=== PATIENT | female | born 1960 | race Caucasian/White ===

== ENCOUNTER 2017-01-26 13:15 | Emergency (ER) | payer OTHER ==
[2017-01-26 13:22] VITALS: BP 140/79; PULSE 105; TEMP 100; BMI 30.9
--- NOTE | 2017-01-26 15:26 | PDOC ---
History of Present Illness - General Chief Complaint: Pain Stated Complaint: RT ARM PAIN Time Seen by Provider: 01/26/17 15:15 History Source: Patient Exam Limitations: No Limitations - History of Present Illness Initial Comments: 01/26/17 15:27 In for evaluation of right arm and shoulder pain that started 2 days ago. 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 over the weekend did multiple managed care liaison, lifting pulling. is very active and has never had any issues with musculoskeletal problems. yesterday had onset of shoulder pain that has progressively become worse today where she is unable to abduct her arm past approximately 30. Denies numbness or tingling to hand, no fevers, no recent trauma or injuries. Has never had evaluation for shoulder pain and has taken no medication. Patient is suffering from a severe case of eczema and taking multiple creams and steroids and does not like to use medications for anything therefore has not tried any Tylenol or Motrin for pain relief. 01/26/17 15:54 Occurred: reports: last week Severity: reports: mild, moderate Pain Location: reports: upper extremity (right arm ) Method of Injury: Yes: unknown Modifying Factors: improves with: None, cold therapy Loss of Consciousness: no loss of consciousness Associated Symptoms (Fall): denies symptoms Past History - Travel Traveled outside of the country in the last 30 days: No Close contact w/someone who was outside of country & ill: No - Past Medical History Allergies/Adverse Reactions: Allergies Allergy/AdvReac Type Severity Reaction Status Date / Time ampicillin Allergy Verified 01/26/17 13:22 Penicillins Allergy Verified 01/26/17 13:22 Home Medications: Ambulatory Orders NK [No Known Home Medication] 01/26/17 HTN: Yes Other medical history: eczema - Suicide/Smoking/Psychosocial Hx Smoking History: Never smoked Hx Alcohol Use: No Drug/Substance Use Hx: No Substance Use Type: None Review of Systems - Review of Systems Able to Perform ROS?: Yes Is the patient limited Green[place]ic proficient: Yes Constitutional: Yes: Symptoms Reported, See HPI. No: Fever, Malaise HEENTM: No: Symptoms Reported Respiratory: No: Symptoms reported Musculoskeletal: Yes: Symptoms Reported, See HPI, Joint Pain, Joint Swelling, Muscle Pain All Other Systems: Reviewed and Negative *Physical Exam - Vital Signs Last Vital Signs Temp Pulse Resp BP Pulse Ox 100 F H 105 H 19 140/79 96 01/26/17 13:20 01/26/17 13:20 01/26/17 13:20 01/26/17 13:20 01/26/17 13:20 - Physical Exam General Appearance: Yes: Nourished, Appropriately Dressed, Apparent Distress HEENT: positive: MIHAELA, Normal ENT Inspection (older,), TMs Normal, Pharynx Normal Neck: positive: Supple. negative: Tender Respiratory/Chest: positive: Lungs Clear, Normal Breath Sounds Musculoskeletal: positive: Decreased Range of Motion. negative: Normal Inspection, Vertebral Tenderness Extremity: positive: Normal Capillary Refill. negative: Normal Range of Motion (limited range of motion to abduction approximately 30 forward flexion approximately 30. Able to flex and extend at wrist and elbow with no pain on supination and pronation at wrist joint. Strong grasp, neurovascular intact to hand. Has reproduced tenderness at the insertion of the biceps tendons, and shoulder capsule. Has no crepitus or step-offs, no reproduced tenderness along bones of clavicle or scapula. 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 We'll treat with NSAIDs and have follow-up with orthopedist *DC/Admit/Observation/Transfer Diagnosis at time of Disposition: Right shoulder tendonitis - Discharge Dispostion Disposition: HOME Condition at time of disposition: Stable Admit: No - Referrals Referrals: Jimy Nuñez MD [Primary Care Provider] - - Patient Instructions Printed Discharge Instructions: DI for Calcific Tendonitis of the Shoulder Additional Instructions: Rest, ice to area on and off for 15 minutes 4-6 times a day Avoid heavy lifting or exercise until pain and swelling is resolved or until further directed Keep area highly elevated to reduce swelling Use splints/Bbo wrap as directed Followup with orthopedist in one to 2 days if not improving, if significantly improved may wait one week for followup with orthopedist May use ibuprofen 2-200 mg tablets every 6 hours as needed for pain Dr. Angelo Mahajan has orthopedic clinic hours for Medicare/Medicaid Orthopedic referral patients Office is located on [address] at [facility] ; call for appointment Clinic is open Wednesday from 9 AM to 12 noon and afternoon from to 4pm - Post Discharge Activity Forms/Work/School Notes: Back to Work
[2017-01-26] MEDS ORDERED: KETOROLAC TROMETHAMINE 60 MG/2 ML VIAL ONE (15:52)
[2017-01-26] MEDS ORDERED: KETOROLAC TROMETHAMINE 60 MG/2 ML VIAL IM ONE (15:54)
== END 2017-01-26 17:10 | disposition home or self-care (01) ==
LOC: JERFT 13:15
PROC: 3E0233Z Introduction of Anti-inflammatory into Muscle, Percutaneous Approach (ICD-10-PCS; principal; 2017-01-26)
DX: M75.32 Calcific tendinitis of left shoulder (principal); I10 Essential (primary) hypertension; Z88.0 Allergy status to penicillin; Z88.1 Allergy status to other antibiotic agents
CPT/HCPCS: 99281-25

== ENCOUNTER 2017-09-24 18:17 | Inpatient (IN) | payer OTHER ==
--- NOTE | 2017-09-24 18:19 | PDOC ---
Rapid Medical Evaluation Time Seen by Provider: 09/24/17 18:18 Medical Evaluation: Allergies Allergy/AdvReac Type Severity Reaction Status Date / Time ampicillin Allergy Verified 01/26/17 13:22 Penicillins Allergy Verified 01/26/17 13:22 09/24/17 18:18 I have performed a brief in-person evaluation of this patient. The patient presents with a chief complaint of: Upper days w/ nausea x several days. H/o IDDM PMD is Dr Reynoso Pertinent physical exam findings: BP 162/102, HR 116 but well dione w/ minimal ttp to epigastrium I have ordered the following:ekg/labs The patient will proceed to the ED for further evaluation. 09/24/17 18:27 Discharge Disposition - Diagnosis Abdominal pain Qualifiers: Abdominal location: upper abdomen, unspecified Qualified Code(s): R10.10 - Upper abdominal pain, unspecified - Referrals - Patient Instructions - Post Discharge Activity
[2017-09-24 18:28] VITALS: BMI 28.3
[2017-09-24 18:56] LABS: BASO % 0.5 % (0-2.0); EOS % 0.5 % (0-4.5); HEMOGLOBIN 12.9 GM/dL (10.7-15.3); LYMPH % 13.2 % (8-40); MCH 27.1 pg (25.7-33.7); MCHC 33.1 g/dl (32.0-36.0); MEAN CELL VOLUME 81.8 fl (80-96); MONO % 8.7 % (3.8-10.2); NEUT % 77.1 % (42.8-82.8); PLATELET COUNT 244 K/MM3 (134-434); RBC 4.77 M/mm3 (3.60-5.2); RDW 12.9 % (11.6-15.6); WHITE BLOOD COUNT 10.3 K/mm3 (4.0-10.0)
--- NOTE | 2017-09-24 19:10 | PDOC ---
History of Present Illness - General Chief Complaint: Nausea/Vomiting Stated Complaint: PAIN Time Seen by Provider: 09/24/17 18:18 - History of Present Illness Initial Comments: 09/24/17 19:08 Ms. Nieves is a 57 yo female w/ pmh of DM who presents for evaluation of multiple complaints. She reports she has had several months of back pain and recent MRI that showed several bulging discs. She also reports a recent history of thrombophlebitis to her left arm after some routine blood draws and "not feeling right." Ms. Nieves decided to present today as she began to have epigastric pain radiating to her right side. The patient denies chest pain, shortness of breath, headache and dizziness. Denies fever, chills, nausea, vomit, diarrhea and constipation. Denies dysuria, frequency, urgency and hematuria. Allergies: Ampicillin, penicillins PMD is Dr Reynoso Past History - Past Medical History Allergies/Adverse Reactions: Allergies Allergy/AdvReac Type Severity Reaction Status Date / Time ampicillin Allergy Verified 09/24/17 18:24 Penicillins Allergy Verified 09/24/17 18:24 Home Medications: Ambulatory Orders Sitagliptin Phosphate [Januvia -] 100 mg PO DAILY@0700 09/24/17 COPD: No Diabetes: Yes HTN: Yes (white coat syndrome) - Immunization History Immunization Up to Date: Yes - Suicide/Smoking/Psychosocial Hx Smoking History: Never smoked Hx Alcohol Use: No Drug/Substance Use Hx: No Substance Use Type: None Review of Systems - Review of Systems Comments:: 09/24/17 19:09 GENERAL/CONSTITUTIONAL: No fever or chills. No weakness. HEAD, EYES, EARS, NOSE AND THROAT: No change in vision. No ear pain or discharge. No sore throat. CARDIOVASCULAR: No chest pain or shortness of breath RESPIRATORY: No cough, wheezing, or hemoptysis. GASTROINTESTINAL: +RUQ pain radiating to side. No nausea, vomiting, diarrhea or constipation. GENITOURINARY: No dysuria, frequency, or change in urination. MUSCULOSKELETAL: No joint or muscle swelling or pain. No neck or back pain. SKIN: No rash NEUROLOGIC: No headache, vertigo, loss of consciousness, or change in strength/ sensation. ENDOCRINE: No increased thirst. No abnormal weight change HEMATOLOGIC/LYMPHATIC: No anemia, easy bleeding, or history of blood clots. ALLERGIC/IMMUNOLOGIC: No hives or skin allergy. *Physical Exam - Vital Signs Last Vital Signs Temp Pulse Resp BP Pulse Ox 99.0 F 116 H 20 162/102 98 09/24/17 18:25 09/24/17 18:25 09/24/17 18:25 09/24/17 18:25 09/24/17 18:25 - Physical Exam Comments: 09/24/17 19:10 GENERAL: Awake, alert, and fully oriented, in no acute distress HEAD: No signs of trauma, normocephalic, atraumatic EYES: PERRLA, EOMI, sclera anicteric, conjunctiva clear ENT: Auricles normal inspection, hearing grossly normal, nares patent, oropharynx clear without exudates. Moist mucosa NECK: Normal ROM, supple, no lymphadenopathy, JVD, or masses LUNGS: No distress, speaks full sentences, clear to auscultation bilaterally HEART: Regular rate and rhythm, normal S1 and S2, no murmurs, rubs or gallops, peripheral pulses normal and equal bilaterally. ABDOMEN: +RUQ TTP. Otherwise soft, nontender, normoactive bowel sounds. No guarding, no rebound. No masses EXTREMITIES: Normal inspection, Normal range of motion, no edema. No clubbing or cyanosis. NEUROLOGICAL: Cranial nerves II through XII grossly intact. Normal speech, normal gait, no focal sensorimotor deficits SKIN: Warm, Dry, normal turgor, no rashes or lesions noted. ED Treatment Course - LABORATORY CBC & Chemistry Diagram: 09/24/17 18:36 09/24/17 18:36 - ADDITIONAL ORDERS Additional order review: 09/24/17 18:36 RBC 4.77 MCV 81.8 MCHC 33.1 RDW 12.9 MPV 8.0 Neutrophils % 77.1 Lymphocytes % 13.2 Monocytes % 8.7 Eosinophils % 0.5 Basophils % 0.5 Medical Decision Making - Medical Decision Making 09/24/17 23:56 Ms. Nieves is a 57 yo female w/ pmh as described who presents for evaluation of multiple complaints. Broad workup started with labs as below. US ordered for evaluation of abdominal pain. Patient noted to have elevated troponin as below. Patient signed out to Dr. Mosley for further evaluation. Laboratory Results - last 24 hr 09/24/17 09/24/17 09/24/17 18:36 18:36 18:36 WBC 10.3 H RBC 4.77 Hgb 12.9 Hct 39.0 MCV 81.8 MCH 27.1 MCHC 33.1 RDW 12.9 Plt Count 244 MPV 8.0 Absolute Neuts (auto) 7.9 Neutrophils % 77.1 Lymphocytes % 13.2 Monocytes % 8.7 Eosinophils % 0.5 Basophils % 0.5 Nucleated RBC % 0 Sodium 130 L Potassium 3.7 Chloride 95 L Carbon Dioxide 25 Anion Gap 10 BUN 12 Creatinine 0.7 Creat Clearance w eGFR > 60 Random Glucose 171 H Calcium 9.6 Total Bilirubin 0.7 D AST 47 H ALT 43 Alkaline Phosphatase 147 H Creatine Kinase 72 Troponin I 0.36 H Total Protein 7.6 Albumin 3.8 Lipase 288 TSH 1.22 Urine Color Urine Appearance Urine pH Ur Specific [place] Urine Protein Urine Glucose (UA) Urine Ketones Urine Blood Urine Nitrite Urine Bilirubin Urine Urobilinogen Ur Leukocyte Esterase Urine WBC (Auto) Urine RBC (Auto) Ur Epithelial Cells Urine Mucus 09/24/17 19:29 WBC RBC Hgb Hct MCV MCH MCHC RDW Plt Count MPV Absolute Neuts (auto) Neutrophils % Lymphocytes % Monocytes % Eosinophils % Basophils % Nucleated RBC % Sodium Potassium Chloride Carbon Dioxide Anion Gap BUN Creatinine Creat Clearance w eGFR Random Glucose Calcium Total Bilirubin AST ALT Alkaline Phosphatase Creatine Kinase Troponin I Total Protein Albumin Lipase TSH Urine Color Yellow Urine Appearance Clear Urine pH 6.0 Ur Specific [place] 1.021 Urine Protein 1+ H Urine Glucose (UA) 1+ H D Urine Ketones 1+ H Urine Blood 2+ H Urine Nitrite Negative Urine Bilirubin Negative Urine Urobilinogen Negative Ur Leukocyte Esterase Negative Urine WBC (Auto) 4 Urine RBC (Auto) 25 Ur Epithelial Cells Rare Urine Mucus Rare *DC/Admit/Observation/Transfer Diagnosis at time of Disposition: Abdominal pain Qualifiers: Abdominal location: upper abdomen, unspecified Qualified Code(s): R10.10 - Upper abdominal pain, unspecified - Referrals Referrals: Shila Reynoso MD [Primary Care Provider] - - Patient Instructions - Post Discharge Activity
[2017-09-24 19:16] LABS: ALBUMIN 3.8 g/dl (3.4-5.0); ANION GAP 10 (8-16); BLOOD UREA NITROGEN 12 mg/dL (7-18); CALCIUM 9.6 mg/dL (8.5-10.1); CHLORIDE 95 mmol/L (98-107); CO2 25 mmol/L (21-32); CREATININE 0.7 mg/dL (0.55-1.02); GLUCOSE,RANDOM 171 mg/dL (74-106); POTASSIUM 3.7 mmol/L (3.5-5.1); SGOT/AST 47 U/L (15-37); SGPT/ALT 43 U/L (12-78); SODIUM 130 mmol/L (136-145)
[2017-09-24 19:20] LABS: ALK PHOS 147 U/L (45-117); BILIRUBIN,TOTAL 0.7 mg/dL (0.2-1.0); TOT PROT 7.6 g/dl (6.4-8.2)
[2017-09-24 19:42] LABS: URINE APPEARANCE CLEAR; URINE BILIRUBIN NEGATIVE (<2.0 mg/dL); URINE COLOR YELLOW; URINE GLUCOSE (UA) 1+ (NEGATIVE); URINE KETONE 1+ (NEGATIVE); URINE LEUK ESTERASE NEGATIVE (NEGATIVE); URINE NITRITE NEGATIVE (NEGATIVE); URINE UROBILINOGEN NEGATIVE mg/dL (0.2-1.0)
[2017-09-24 19:45] LABS: URINE PROTEIN 1+ (NEGATIVE)
[2017-09-24 19:48] LABS: LIPASE 288 U/L (73-393)
[2017-09-24 19:53] LABS: EPI CELLS RARE /HPF (FEW); URINE MUCUS RARE
[2017-09-24] MEDS ORDERED: LIDOCAINE VISCOUS 2% ORAL/TOP 20 ML UNIT-DOSE CUP MM ONE (19:57)
[2017-09-24] MEDS ORDERED: SODIUM CHLORIDE 1,000 ML IV STA (19:57)
[2017-09-24] MEDS ORDERED: MAG HYDROX/AL HYDROX/SIMETH 30 ML UNIT-DOSE CUP PO ONE (19:57)
[2017-09-24] MEDS ORDERED: FAMOTIDINE 20 MG/50 ML IVPB 20 MG/50 ML MG IVPB ONE ×2 (19:57→20:08)
[2017-09-24] MEDS ORDERED: ONDANSETRON 4 MG/2 ML VIAL IVPUSH ONE (19:57)
[2017-09-24] MEDS ORDERED: MAG HYDROX/AL HYDROX/SIMETH 30 ML UNIT-DOSE CUP ONE (20:08)
[2017-09-24] MEDS ORDERED: LIDOCAINE VISCOUS 2% ORAL/TOP 20 ML UNIT-DOSE CUP ONE (20:08)
[2017-09-24] MEDS ORDERED: ONDANSETRON 4 MG/2 ML VIAL ONE (20:08)
[2017-09-24] MEDS ORDERED: ASPIRIN 325 MG TABLET PO ONE (20:09)
[2017-09-24] MEDS ORDERED: ASPIRIN 325 MG TABLET ONE (20:27)
--- NOTE | 2017-09-24 22:59 | PDOC ---
Attending Attestation - Resident Resident Name: Donis Carmichael - ED Attending Attestation I have performed the following: I have examined & evaluated the patient, The case was reviewed & discussed with the resident, I agree w/resident's findings & plan, Exceptions are as noted - HPI HPI: 09/24/17 22:57 "The patient is a 57 year old female with past medical history of IDDM ( recently diagnosed), HTN and eczema presents to the emergency department complaining of total body pain. The patient reports constant pain that originated at the epigastric region radiating to the RUQ. Pt also complains of generalized malaise and pain in her shoulders and back. Pt denies chest pain, sob. Denies fever, chills, cough or headache. Denies nausea or vomiting. Denies diarrhea or constipation. Denies dysuria, hematuria, frequency or urgency to urinate. Denies vertigo or dizziness. Denies recent travel or illness. Denies sick contact. Allergies: ampicillin and Penicillins Social history: None reported Surgical history: None reported PCP: Shila Mitchell MD " - Physicial Exam PE: 09/24/17 22:59 "GENERAL: Awake, alert, and fully oriented, in no acute distress. HEAD: No signs of trauma EYES: PERRLA, EOMI, sclera anicteric, conjunctiva clear ENT: Auricles normal inspection, hearing grossly normal, nares patent, oropharynx clear without exudates. Moist mucosa NECK: Nontender, no stepoffs, Normal ROM, supple, no lymphadenopathy, JVD, or masses LUNGS: Breath sounds equal, clear to auscultation bilaterally. No wheezes, and no crackles HEART: Regular rate and rhythm, normal S1 and S2, no murmurs, rubs or gallops ABDOMEN: +RUQ and epigastric TTP, normoactive bowel sounds. No guarding, no rebound. No masses EXTREMITIES: Normal range of motion, no edema. No clubbing or cyanosis. No cords, erythema, or tenderness NEUROLOGICAL: Cranial nerves II through XII intact. 5/5 strength and sensation in all extremities, Normal speech, normal gait, normal cerebellar function SKIN: Warm, Dry, normal turgor, no rashes or lesions noted. " - Medical Decision Making 09/24/17 22:59 57 F with abdominal, back, shoulder pain. Found to be tender in RUQ on exam. Will r/o lucas with US. Will also check cardiac enzymes to r/o ACS, though she denies chest pain. - Labs, trop, lipase - RUQ sono - GI cocktail 09/24/17 23:00 Pt with mild trop leak 0.36 EKG shows sinus tachycardia with no ST changes or T wave inversions. 09/25/17 01:03 US negative for acute lucas. Pt continues to deny chest pain/SOB but endorses epigastric burning. Will admit for serial trops and ACS rule out. 09/25/17 02:[address] Montague who has accepted pt for inpt tele admission. Aspirin, metoprolol, lovenox administered Discharge Disposition - Diagnosis Elevated troponin Abdominal pain Qualifiers: Abdominal location: upper abdomen, unspecified Qualified Code(s): R10.10 - Upper abdominal pain, unspecified - Discharge Dispostion Decision to Admit order: Yes - Referrals Referrals: Shila Reynoso MD [Primary Care Provider] - - Patient Instructions - Post Discharge Activity
[2017-09-25] MEDS ORDERED: ACETAMINOPHEN 1000 MG/100 ML VIAL (NON FORMULARY) IVPB ONE (01:56)
[2017-09-25] MEDS ORDERED: ACETAMINOPHEN INJECTION 100 ML IVPB ONE (02:05)
[2017-09-25] MEDS ORDERED: ASPIRIN 325 MG TABLET PO ONE (02:07)
[2017-09-25] MEDS ORDERED: METOPROLOL TARTRATE 25 MG TABLET (FP) PO ONE (02:18)
[2017-09-25] MEDS ORDERED: ENOXAPARIN NA (PORCINE) 80 MG/0.8 ML DISP.SYRIN SQ ONE ×2 (02:19→02:31)
[2017-09-25] MEDS ORDERED: METOPROLOL TARTRATE 25 MG TABLET (FP) ONE (02:31)
[2017-09-25] MEDS ORDERED: ATORVASTATIN CA 80 MG TABLET (FP) PO ONE (02:51)
[2017-09-25 07:07] LABS: CHOLESTEROL 162 mg/dL (50-200); HDL CHOLESTEROL 42 mg/dL (40-60); TRIGLYCERIDES 113 mg/dL (35-160)
[2017-09-25 07:10] LABS: ALBUMIN 3.7 g/dl (3.4-5.0); ALK PHOS 155 U/L (45-117); ANION GAP 11 (8-16); BILIRUBIN,TOTAL 0.9 mg/dL (0.2-1.0); BLOOD UREA NITROGEN 7 mg/dL (7-18); CALCIUM 9.1 mg/dL (8.5-10.1); CHLORIDE 95 mmol/L (98-107); CO2 24 mmol/L (21-32); CREATININE 0.6 mg/dL (0.55-1.02); GLUCOSE,RANDOM 190 mg/dL (74-106); SGOT/AST 60 U/L (15-37); SGPT/ALT 40 U/L (12-78); SODIUM 130 mmol/L (136-145); TOT PROT 7.2 g/dl (6.4-8.2)
[2017-09-25] MEDS: INSULIN SLIDING SCALE (NOVOLOG) 1 VIAL SQ SCH (08:33)
[2017-09-25] MEDS ORDERED: sitaGLIPtin PHOSPHATE 50 MG TABLET ONE (08:34)
[2017-09-25] MEDS ORDERED: INSULIN (NOVOLOG) ASPART 100 UNITS/ML 10ML VIAL ONE (08:36)
[2017-09-25] MEDS: sitaGLIPtin PHOSPHATE 50 MG TABLET PO SCH (08:42)
--- NOTE | 2017-09-25 09:32 | HP ---
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 and decisons was made not to AC) recent Ct scan back shows spinal Hemangioma, patient completed prolonged Steroid (4months) for skin rash, yesterday present with sudden onset epigastric pain with nausea, radiates to back with, 8/10 in intensity no associated diarrhea, constipation, fever, chills or vomiting, patient denies any chest pain or SOB, in the Ed w/u shows elevated trop I but normal EKG and no chest pain, admitted for further evaluation, recived one dose of Lovenox , B Blockers and Statin, patient also had abdominal ultrasound that shows multiple hepatic opacities , mildly dilated CBD and pancreatic tail mass with perpancreatic node(new since 07/04), this am comfortable denies any abd or chest pain, CBC, CMP are at base line. Patient admit loosing 25 Lbs during past few months on [place] diet. History Source: Patient Limitations to Obtaining History: No Limitations - Past Medical History Gastrointestinal: Yes: Other (Fatty lever) Heme/Onc: Yes: Other (Thromboplebitis) Endocrine: Yes: Diabetes Mellitus - Smoking History Smoking history: Never smoked - Alcohol/Substance Use Hx Alcohol Use: No Home Medications - Allergies Allergies/Adverse Reactions: Allergies Allergy/AdvReac Type Severity Reaction Status Date / Time ampicillin Allergy Verified 09/24/17 18:24 Penicillins Allergy Verified 09/24/17 18:24 - Home Medications Home Medications: Ambulatory Orders Sitagliptin Phosphate [Januvia -] 100 mg PO DAILY@0700 09/24/17 Family Disease History - Family Disease History Family Disease History: Heart Disease: Brother Review of Systems - Review of Systems Constitutional: reports: Loss of Appetite, Unintentional Wgt. Loss (on [place] Diet 25 Lbs over 2 months). denies: Lethargy HENT: reports: No Symptoms Neck: reports: No Symptoms Cardiovascular: reports: No Symptoms Respiratory: reports: No Symptoms Gastrointestinal: reports: Abdominal Pain, Bloating Genitourinary: reports: No Symptoms Breasts: reports: No Symptoms Reported Musculoskeletal: reports: No Symptoms Neurological: reports: No Symptoms Endocrine: reports: No Symptoms Hematology/Lymphatic: reports: No Symptoms Physical Examination Vital Signs: Vital Signs Temperature 98.5 F 09/25/17 07:15 Pulse Rate 82 09/25/17 07:15 Respiratory Rate 17 09/25/17 07:15 Blood Pressure 117/77 09/25/17 07:15 O2 Sat by Pulse Oximetry (%) 98 09/25/17 07:15 Middle aged F feels improved less abs pain HEENT; Mm moist, no anemia, PERRLA EOMI NECK; No JVD No Bruit CHEST: CTA B/L CVS; s1S2 R no m/g/r ABD; No distention, mild epigastric tenderness tender Bs+ EXT: Cord like palpable vein Left upper extremity ,No edema feet, no calf tenderness, Pulses +. 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 Code(s): R74.8 - ABNORMAL LEVELS OF OTHER SERUM ENZYMES (2) Epigastric abdominal pain Assessment/Plan: Epigastric pain normal LFTS and lipase previous ultrasound shows Hepatic llesions and pancreativc tail mass with timothy-pancreatic LN enlargement, in view of recent unprovoked thrombosis and skin rash high suspicion for malignancy as per patient lat colonoscopy was few yrs ago and mammogram was normal, patient had an abdominal ultrasoiaund in 06/2015 shows fatty lever no hepatic masses, oncology consult, tumor markers and MRCP. Code(s): R10.13 - EPIGASTRIC PAIN (3) T2DM (type 2 diabetes mellitus) Assessment/Plan: Cont Januvia Hold [place] F/U HbA1C and Correction dose insulin. Code(s): E11.9 - TYPE 2 DIABETES MELLITUS WITHOUT COMPLICATIONS (4) Venous thrombosis Assessment/Plan: Left Upper extremity thrombosis after collecting blood sample , next day patient developed Left UE swelling, ultrasound donee at [place] shos median cubital V, , Cephalic V and , CT B/L subsegmental PE (Prelim report) on Lovenox Code(s): I82.90 - ACUTE EMBOLISM AND THROMBOSIS OF UNSPECIFIED VEIN (5) Pulmonary emboli Assessment/Plan: Subsegmental Rt LL and Left LL Segmental PE as per prelim Ct chest on Lovenox F/ U LE DVT and UE DVT scan scan Code(s): I26.99 - OTHER PULMONARY EMBOLISM WITHOUT ACUTE COR PULMONALE Qualifiers: Chronicity: acute (6) Pancreatic mass Assessment/Plan: Ct sacn and ultrasound shows 3.5X3.5 pancreatic mass encapsulating Spleenic , with paratrachael LN and multiple hepatic lesions highly suggestive of Pancraetic tumor will discuss with the patient. Code(s): K86.9 - DISEASE OF PANCREAS, UNSPECIFIED
[2017-09-25] MEDS ORDERED: ASPIRIN 81 MG CHEWABLE TABLETS PO SCH (10:00)
[2017-09-25] MEDS: metoPROLOL SUCCINATE 25 MG TAB.SR.24H (FP) PO SCH ×2 (10:40→22:25)
[2017-09-25] MEDS: RANITIDINE HCL 150 MG TABLET (FP) PO SCH ×3 (10:46→22:29)
--- NOTE | 2017-09-25 13:09 | CON.CARD ---
Cardiology Consult (text) - Consultation Consultation Note: CC: epigastric pain 57 yo with DM (about to start insulin), recent abd u/s showing NAFLD, recent dx of spinal hemangioma, recent dx of thrombophlebitis who p/w diffuse pain/ predominantly epigastric pain pain radiates to her right side. has been having fever for the past couple of weeks. Associated right arm swelling --> dx with [facility]. Also nausea. s/p mylanta, zofran, iv pepcid, 1L IVF and ASA 325 in ER. Denies cp, sob, orthopnea, pnd, le edema, palps, dizziness, bleeding, claudication or transient neurologic symptoms Denies chills, sweats, cough, congestion, rash, h/a, visual disturbances. PMD is Dr Reynoso pmhx/pshx: per hpi social hx: Never smoked fam hx: father and mother had MT's. ros: per hpi Ambulatory Orders Sitagliptin Phosphate [Januvia -] 100 mg PO DAILY@0700 09/24/17 Current Medications Aspirin (Asa -) 81 mg PO DAILY [facility] Last Admin: 09/25/17 10:40 Dose: 81 mg Insulin Aspart (Novolog Vial Sliding Scale -) 1 vial SQ TIDAC [facility]; Protocol Last Admin: 09/25/17 08:33 Dose: 4 unit Metoprolol Succinate (Toprol Xl -) 25 mg PO BID [facility] Last Admin: 09/25/17 10:40 Dose: 25 mg Ranitidine HCl (Zantac -) 150 mg PO BID [facility] Last Admin: 09/25/17 10:46 Dose: 150 mg Sitagliptin Phosphate (Januvia -) 100 mg PO DAILY@0700 [facility] Last Admin: 09/25/17 08:42 Dose: 100 mg Vital Signs - 24 hr 09/24/17 09/24/17 09/25/17 18:25 19:59 02:28 Temperature 99.0 F 98.2 F 99.6 F Pulse Rate 116 H Pulse Rate [ 100 H 104 H Apical] Respiratory 20 20 20 Rate Blood Pressure 162/102 Blood Pressure 158/74 169/98 [Right Arm] O2 Sat by Pulse 98 99 99 Oximetry (%) 09/25/17 07:15 Temperature 98.5 F Pulse Rate Pulse Rate [ 82 Apical] Respiratory 17 Rate Blood Pressure Blood Pressure 117/77 [Right Arm] O2 Sat by Pulse 98 Oximetry (%) Intake & Output 09/23/17 09/24/17 09/25/17 09/26/17 07:59 07:59 07:59 07:59 Weight 165 lb NAD, calm JVD flat, neck supple ctab, nl effort rrr nl s1, s2. no mrg + bs soft nt nd ext without e/c/c + dp/pt, no carotid bruits no jaundice, diaphoresis aaox3 small indurations at left UE antecubital fossa CBC, BMP 09/24/17 18:36 09/25/17 06:00 Laboratory Tests 09/24/17 09/24/17 09/25/17 18:36 18:36 01:20 Hemoglobin A1c % Total Bilirubin 0.7 D AST 47 H ALT 43 Alkaline Phosphatase 147 H Creatine Kinase 72 82 Troponin I 0.36 H 0.47 H Albumin 3.8 Triglycerides Cholesterol Total LDL Cholesterol HDL Cholesterol Lipase 288 TSH 1.22 09/25/17 09/25/17 09/25/17 06:00 06:00 06:00 Hemoglobin A1c % 8.2 H Total Bilirubin AST ALT Alkaline Phosphatase Creatine Kinase Troponin I 0.51 H Albumin Triglycerides 113 Cholesterol 162 Total LDL Cholesterol 105 H HDL Cholesterol 42 Lipase TSH 09/25/17 13:49 Hemoglobin A1c % Total Bilirubin AST ALT Alkaline Phosphatase Creatine Kinase 110 Troponin I 0.38 H Albumin Triglycerides Cholesterol Total LDL Cholesterol HDL Cholesterol Lipase TSH EKG: wnl tele: sr cxr; widening of the mediatstinum in the rigth paratracheal region, could represent ectatic great vasculature, adenopathy can't be excluded. clear lung bush. abd u/s 09/2017: numerous hypoechoic mass lesions (suspicious for metastatic disease). Indeterminate hypoechogenicity at junction of the pancreatic tail and body - pancreatitis vs. mass. enlarged peripancreatic l. node. mild cbd dilatation. aorta wnl. abd u/s 06/2017: mild hepatomegaly with fatty infiltration vs. hepatocellular disease. Per pmd, UE u/s from [place] was notable for: occlusive thrombus in the more distal brachial and ulnar veins. There is complete thrombosis of the basilic vein to the level of its confluence with the axillary vein and complete thrombosis of the median cubital vein. There is a segment of occlusive thrombus in the cephalic vein at the level of the antecubital fossa. no thrombus in the left internal jugular, subclavian and axillary vein or in the brachial vein to the level of the antecubital fossa. ASSESSMENT/PLAN 57 yo with DM (about to start insulin), recent abd u/s showing NAFLD, recent dx of spinal hemangioma, recent dx of thrombophlebitis who p/w diffuse pain/ predominantly epigastric pain epigastric pain/abnormal troponins - intermediate elevation, overall flat trend, nl ck - not c/w ACS. EKG wnl. - In light of recent thrombus in UE, would rule out PE as etiology of troponin elevation. - plan on stress test and echo on wednesday. would start primary prevention regimen with low dose asa, and low dose statin. - eval/mgm't of non-cardiac contribution to epigastric discomfort per pmd. ? hepatic lesions, new since june. UE thrombophlebitis - pmd discussed findings with both the consulting utility forester who was consulted at [facility] and a vascular surgeon --> both thought that treatment with anticoagulation was not needed. However, if pain were to persist, plan was to get a f/u LUE doppler to make sure no extension of the clot. And short course of treatment with NOAC (ie: Eliquis) x 6 weeks was to be reconsidered. -- > would repeat u/s here. hyponatremia - per pmd
--- NOTE | 2017-09-25 14:36 | EKG ---
Test Reason : Blood Pressure : / mmHG Vent. Rate : 090 BPM Atrial Rate : 090 BPM P-R Int : 138 ms QRS Dur : 078 ms QT Int : 388 ms P-R-T Axes : 046 023 042 degrees QTc Int : 474 ms NORMAL SINUS RHYTHM NORMAL ECG WHEN COMPARED WITH ECG OF 24-SEP-2017 18:34, NO SIGNIFICANT CHANGE WAS FOUND Confirmed by MD Santoyo Daniel ([id number]) on 09/25/2017 2:35:58 PM Referred By: Pat ULRICH Confirmed By:Anirudh Santoyo MD
--- NOTE | 2017-09-25 14:38 | EKG ---
Test Reason : Blood Pressure : / mmHG Vent. Rate : 118 BPM Atrial Rate : 118 BPM P-R Int : 134 ms QRS Dur : 076 ms QT Int : 334 ms P-R-T Axes : 040 015 051 degrees QTc Int : 468 ms SINUS TACHYCARDIA CANNOT RULE OUT ANTERIOR INFARCT , AGE UNDETERMINED ABNORMAL ECG NO PREVIOUS ECGS AVAILABLE Confirmed by MD Natanael, Anirudh ([id number]) on 09/25/2017 2:37:47 PM Referred By: Confirmed By:Anirudh Santoyo MD
[2017-09-25] MEDS: ENOXAPARIN NA (PORCINE) 80 MG/0.8 ML DISP.SYRIN SQ SCH (22:25)
[2017-09-26] MEDS: ACETAMINOPHEN 325 MG TABLET (FP) PO PRN (01:21)
[2017-09-26] MEDS: INSULIN SLIDING SCALE (NOVOLOG) 1 VIAL SQ SCH ×3 (06:43→18:37)
[2017-09-26] MEDS: sitaGLIPtin PHOSPHATE 50 MG TABLET PO SCH (06:44)
[2017-09-26 07:55] LABS: BASO % 0.4 % (0-2.0); EOS % 0.5 % (0-4.5); HEMATOCRIT 34.9 % (32.4-45.2); HEMOGLOBIN 11.8 GM/dL (10.7-15.3); LYMPH % 12.4 % (8-40); MCH 27.3 pg (25.7-33.7); MCHC 33.9 g/dl (32.0-36.0); MEAN CELL VOLUME 80.6 fl (80-96); MEAN PLT VOLUME 8.2 fl (7.5-11.1); MONO % 9.7 % (3.8-10.2); PLATELET COUNT 216 K/MM3 (134-434); RBC 4.33 M/mm3 (3.60-5.2); RDW 12.8 % (11.6-15.6); WHITE BLOOD COUNT 9.6 K/mm3 (4.0-10.0)
[2017-09-26 08:25] LABS: ANION GAP 9 (8-16); BLOOD UREA NITROGEN 9 mg/dL (7-18); CHLORIDE 97 mmol/L (98-107); CO2 25 mmol/L (21-32); CREATININE 0.6 mg/dL (0.55-1.02); GLUCOSE,RANDOM 159 mg/dL (74-106); MAGNESIUM 2.1 mg/dL (1.8-2.4); SODIUM 131 mmol/L (136-145)
[2017-09-26 08:40] LABS: LIPASE 231 U/L (73-393)
[2017-09-26 08:53] LABS: ALBUMIN 3.4 g/dl (3.4-5.0); BILIRUBIN,DIRECT 0.2 mg/dL (0.0-0.2); BILIRUBIN,TOTAL 0.7 mg/dL (0.2-1.0); TOT PROT 6.7 g/dl (6.4-8.2)
--- NOTE | 2017-09-26 09:57 | CONSULT ---
Consult Consult Specialty:: Hematology/Oncology Referred by:: Reason for Consultation:: New hepatic massess & pancreatic mass - History of Present Illness Chief Complaint: epigastric pain History of Present Illness: is a 57 y/o female with obesity, steroid induced T2DM, recent left UE superficial VT - not on AC who now presents to [facility] with complaints of epigastric pain radiating to the back, nausea with no other symptoms. Imaging studies obtained during this admission- USG abdomen shows a possible pancreatic tail & body mass as well as a LN adjacent to this mass (1.8 X1.3 cms). Multiple hepatic masses suspicious for metastatic disease. Recent CTA performed (still awaiting full read) shows the presence of small subsegmental PE and patient has been initiated on AC. Heme/Onc has been consulted to evaluate the patient for the presence of possible new malignancy. On speaking with patient, she has had a 25 pound weight-loss in the past 2 months, she was also following Atkins diet. She is allergic to penicillin and ampicillin - experiences hives, rashes in response to medication. She states that a full medical evaluation performed a week ago including an USG at PMD's office last week was wnl. 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) ...: No Endocrine: Yes: Diabetes Mellitus - Alcohol/Substance Use Hx Alcohol Use: No - Smoking History Smoking history: Never smoked Have you smoked in the past 12 months: No Home Medications - Allergies Allergies/Adverse Reactions: Allergies Allergy/AdvReac Type Severity Reaction Status Date / Time ampicillin Allergy Verified 09/24/17 18:24 Penicillins Allergy Verified 09/24/17 18:24 - Home Medications Home Medications: Ambulatory Orders Sitagliptin Phosphate [Januvia -] 100 mg PO DAILY@0700 09/24/17 Family Disease History - Family Disease History Family Disease History: Heart Disease: Brother Physical Exam Vital Signs: Vital Signs Temperature 99.8 F H 09/26/17 06:00 Pulse Rate 94 H 09/26/17 06:00 Respiratory Rate 20 09/26/17 06:00 Blood Pressure 151/82 09/26/17 06:00 O2 Sat by Pulse Oximetry (%) 98 09/25/17 21:00 Constitutional: Yes: Well Nourished Eyes: Yes: WNL HENT: Yes: WNL Neck: Yes: WNL Cardiovascular: Yes: WNL Respiratory: Yes: WNL Gastrointestinal: Yes: Normal Bowel Sounds Breast(s): Yes: WNL Musculoskeletal: Yes: WNL Extremities: Yes: WNL Edema: No Labs: CBC, BMP 09/26/17 07:00 09/26/17 07:00 Assessment/Plan 57 y/o female with weight loss, fever (Tmax 101.6), tachycardia with new hepatic , pancreatic masses discovered on USG abdomen, new subsegmental PE's and small pulmonary nodules noted on CTA 1.PE -recommend keeping pt on 1 mg/kg Lovenox divided BID -Hx of recent superficial thrombosis in left arm -possibly malignancy associated thrombosis -awaiting full CTA read -keep under cardiac, telemetry monitoring until vitals have normalized 2.Multiple hepatic masses, pancreatic mass - concern for occult pancreatic primary malignancy -please obtain better imaging study like CT abdomen with and without contrast -send tumor markers- CA 19-9, CA 125, CA 27.29 -Febrile, possible hepatic abscesses? send Bcx -will need CT guided biopsy of most accessible lesion pending further imaging studies Plan explained to patient at bedside and all her questions were answered. Will continue to follow with you.
--- NOTE | 2017-09-26 10:30 | PN ---
Progress Note, Physician Chief Complaint: Patient is concerned about imaging findings, No new complaints - Current Medication List Current Medications: Active Medications Acetaminophen (Tylenol -) 650 mg PO Q6H PRN PRN Reason: TEMP OVER 101 Last Admin: 09/26/17 01:21 Dose: 650 mg Enoxaparin Sodium (Lovenox -) 80 mg SQ BID [facility] Last Admin: 09/25/17 22:25 Dose: 80 mg Insulin Aspart (Novolog Vial Sliding Scale -) 1 vial SQ TIDAC [facility]; Protocol Last Admin: 09/26/17 06:43 Dose: Not Given Metoprolol Succinate (Toprol Xl -) 25 mg PO BID [facility] Last Admin: 09/25/17 22:25 Dose: 25 mg Ranitidine HCl (Zantac -) 150 mg PO BID [facility] Last Admin: 09/25/17 22:29 Dose: Not Given Sitagliptin Phosphate (Januvia -) 100 mg PO DAILY@0700 [facility] Last Admin: 09/26/17 06:44 Dose: 100 mg - Objective Vital Signs: Vital Signs Temperature 99.8 F H 09/26/17 06:00 Pulse Rate 94 H 09/26/17 06:00 Respiratory Rate 20 09/26/17 06:00 Blood Pressure 151/82 09/26/17 06:00 O2 Sat by Pulse Oximetry (%) 98 09/25/17 21:00 Middle aged F feels very anxious and concerned about ultrasound and Ct findings. HEENT; Mm moist, no anemia, PERRLA EOMI NECK; No JVD No Bruit CHEST: CTA B/L CVS; s1S2 R no m/g/r ABD; No distention, mild epigastric tenderness tender Bs+ EXT: Cord like palpable vein Left UE extermity ,No edema feet, no calf tenderness STREET OPENINGS INSPECTOR; AOx3 Non focal Labs: CBC, BMP 09/26/17 07:00 09/26/17 07:00 Problem List - Problems (1) Elevated troponin Assessment/Plan: Unknown etiology no chest pain or EKG changes recieved ASA, B Blockers and Lovenox mildly elevated troponin I will F/U ECHO cont ASA and B Blockers, Cardiology input. Code(s): R74.8 - ABNORMAL LEVELS OF OTHER SERUM ENZYMES (2) Epigastric abdominal pain Assessment/Plan: Epigastric pain normal LFTS and lipase previous ultrasound shows Hepatic lesions and pancreatic tail mass with timothy-pancreatic LN enlargement, in view of recent thrombosis and skin rash high suspicion for malignancy as per patient last colonoscopy was few yrs ago and mammogram was normal, patient had an abdominal ultrasound in 06/2015 shows fatty lever no hepatic masses, oncology consult, tumor markers and MRCP. eventually needs biopsy either liver mets or EUSG from pancreas. Code(s): R10.13 - EPIGASTRIC PAIN (3) T2DM (type 2 diabetes mellitus) Assessment/Plan: Cont Januvia Hold Ilanjedo F/U HbA1C and Correction dose insulin. Code(s): E11.9 - TYPE 2 DIABETES MELLITUS WITHOUT COMPLICATIONS (4) Venous thrombosis Assessment/Plan: Left Upper extremity thrombosis after collecting blood sample , next day patient developed Left UE swelling, [facility] cubital V, , Cephalic V and , CT B/L subsegmental PE (Prelim report) on Lovenox Code(s): I82.90 - ACUTE EMBOLISM AND THROMBOSIS OF UNSPECIFIED VEIN (5) Pulmonary emboli Assessment/Plan: Subsegmental Rt LL and Left LL Segmental PE as per Ct chest on Lovenox F/U LE DVT and UE DVT scan scan Code(s): I26.99 - OTHER PULMONARY EMBOLISM WITHOUT ACUTE COR PULMONALE Qualifiers: Chronicity: acute (6) Pancreatic mass Assessment/Plan: Ct sacn and ultrasound shows 3.5X3.5 pancreatic mass encapsulating Spleenic , with paratrachael LN and multiple hepatic lesions highly suggestive of Pancraetic tumor will discuss with the patient. Findings discussed with the patient explained plan of care and eventually need for a biopsy for tissue diagnosis. Code(s): K86.9 - DISEASE OF PANCREAS, UNSPECIFIED
[2017-09-26] MEDS: ENOXAPARIN NA (PORCINE) 80 MG/0.8 ML DISP.SYRIN SQ SCH ×2 (12:23→22:42)
[2017-09-26] MEDS: RANITIDINE HCL 150 MG TABLET (FP) PO SCH ×3 (12:23→22:46)
[2017-09-26] MEDS: metoPROLOL SUCCINATE 25 MG TAB.SR.24H (FP) PO SCH ×2 (12:23→22:42)
--- NOTE | 2017-09-26 14:54 | PN ---
Progress Note (short form) - Note Progress Note: CC: epigastric pain S: Started lovenox yesterday evening after CTA + for subsegmental PE. no cp, palps, sob, dizziness. + nausea improving, epigastric pain resolved. Still with slight discomfort in RUQ, LUQ. + poor po intake Current Medications Acetaminophen (Tylenol -) 650 mg PO Q6H PRN PRN Reason: TEMP OVER 101 Last Admin: 09/26/17 01:21 Dose: 650 mg Enoxaparin Sodium (Lovenox -) 80 mg SQ BID [facility] Last Admin: 09/26/17 12:23 Dose: 80 mg Insulin Aspart (Novolog Vial Sliding Scale -) 1 vial SQ TIDAC [facility]; Protocol Last Admin: 09/26/17 12:22 Dose: 2 unit Metoprolol Succinate (Toprol Xl -) 25 mg PO BID [facility] Last Admin: 09/26/17 12:23 Dose: 25 mg Ranitidine HCl (Zantac -) 150 mg PO BID [facility] Last Admin: 09/26/17 12:23 Dose: 150 mg Sitagliptin Phosphate (Januvia -) 100 mg PO DAILY@0700 [facility] Last Admin: 09/26/17 06:44 Dose: 100 mg Vital Signs - 24 hr 09/25/17 09/25/17 09/25/17 15:57 17:00 17:50 Temperature 98.8 F 98.4 F Pulse Rate 97 H Pulse Rate [ 88 Apical] Respiratory 18 20 18 Rate Blood Pressure 142/68 Blood Pressure 138/77 [Right Arm] O2 Sat by Pulse 100 100 Oximetry (%) 09/25/17 09/26/17 09/26/17 21:00 01:00 03:02 Temperature 101.6 F H 99.0 F Pulse Rate 98 H Pulse Rate [ Apical] Respiratory 20 Rate Blood Pressure 114/62 Blood Pressure [Right Arm] O2 Sat by Pulse 98 Oximetry (%) 09/26/17 06:00 Temperature 99.8 F H Pulse Rate 94 H Pulse Rate [ Apical] Respiratory 20 Rate Blood Pressure 151/82 Blood Pressure [Right Arm] O2 Sat by Pulse Oximetry (%) Intake & Output 09/24/17 09/25/17 09/26/17 09/27/17 07:59 07:59 07:59 07:59 Intake Total 310 300 Balance 310 300 Weight 165 lb 165 lb NAD, calm JVD flat, neck supple ctab, nl effort rrr nl s1, s2. no mrg + bs soft nt nd ext without e/c/c + dp/pt, no carotid bruits no jaundice, diaphoresis aaox3 small indurations at left UE antecubital fossa CBC, BMP 09/26/17 07:00 09/26/17 07:00 Laboratory Tests 09/26/17 09/26/17 07:00 07:00 Total Bilirubin 0.7 D AST 48 H ALT 40 Alkaline Phosphatase 152 H Albumin 3.4 TSH 1.28 09/26/17 07:00 Magnesium 2.1 EKG: wnl tele: sr/sinus tach cxr; widening of the mediatstinum in the rigth paratracheal region, could represent ectatic great vasculature, adenopathy can't be excluded. clear lung bush. chest CTA 09/2017: (prelim) small PE's in bilateral segmental branches. mild bibasilar atelectasis. multiple small 3-4 mm pulm nodules. mediastinal adenopathy. small pericardial effusion. + hepatic lesions susp for metastatic disease. 1.8 cm rt adrenal nodule. Abdominal LAD. ? mass in body of pancreas. abd u/s 09/2017: numerous hypoechoic mass lesions (suspicious for metastatic disease). Indeterminate hypoechogenicity at junction of the pancreatic tail and body - pancreatitis vs. mass. enlarged peripancreatic l. node. mild cbd dilatation. aorta wnl. abd u/s 06/2017: mild hepatomegaly with fatty infiltration vs. hepatocellular disease. Per outpatient pmd, UE u/s from [place] was notable for: occlusive thrombus in the more distal brachial and ulnar veins. There is complete thrombosis of the basilic vein to the level of its confluence with the axillary vein and complete thrombosis of the median cubital vein. There is a segment of occlusive thrombus in the cephalic vein at the level of the antecubital fossa. no thrombus in the left internal jugular, subclavian and axillary vein or in the brachial vein to the level of the antecubital fossa. ASSESSMENT/PLAN 57 yo with DM (about to start insulin), recent abd u/s showing NAFLD, recent dx of spinal hemangioma, recent dx of thrombophlebitis who p/w diffuse pain/ predominantly epigastric pain abnormal troponins/new dx of segmental PE's. - intermediate elevation, overall flat trend, nl ck - not c/w ACS. EKG wnl. In light of recent thrombus in UE, would rule out PE as etiology of troponin elevation --> CTA confirmed presence of small bilateral segmental PE's. --> started on lovenox BID. Transition to PO NOAC, once clear that no procedures are planned. Honc following. - plan on echo on wednesday, to assess for RV strain. - In light of + PE, can defer stress testing. On AC, no need for additional ASA. In light of hepatic lesions and ab lft's, will defer statin for primary prevention. epigastric pain/ab lft's/hepatic lesions/+ fevers - Ongoing eval of ? hepatic lesions, (new since 06/2017 abd u/s), ? panc lesion , adrenal lesion and pulm nodules per pmd, hon. Possible plan for liver bx on wednesday. - blood cx's pending. UE thrombophlebitis (recent dx last month at [place]) - outpatient pmd discussed findings with both the broker who was consulted at [facility] and a vascular surgeon --> both thought that treatment with anticoagulation was not needed, ? not considered by Media MD's to be DVT b/c only distal? brachial vein involvement--> tx as superficial thrombophlebitis. After discussion of findings with outpatient pmd they additionally recommended that if pain were to persist, plan was to get a f/u LUE doppler to make sure no extension of the clot +/- reconsideration of a short course of treatment with NOAC (ie: Eliquis) x 6 weeks - Given there was documentation of brachial involvement and now with new PE --> plan on repeat bilateral UE ultrasound. - honc following. HTN - no prior dx. sbp's running on higher end here, started on toprol, con't. hyponatremia - per pmd
[2017-09-27] MEDS: ACETAMINOPHEN 325 MG TABLET (FP) PO PRN ×2 (03:02→18:12)
[2017-09-27] MEDS: INSULIN SLIDING SCALE (NOVOLOG) 1 VIAL SQ SCH ×3 (06:18→18:19)
[2017-09-27] MEDS: sitaGLIPtin PHOSPHATE 50 MG TABLET PO SCH (06:18)
[2017-09-27] MEDS ORDERED: INSULIN (NOVOLOG) ASPART 100 UNITS/ML 10ML VIAL ONE ×2 (07:27→22:10)
[2017-09-27 07:36] LABS: CHLORIDE 99 mmol/L (98-107); POTASSIUM 3.9 mmol/L (3.5-5.1); SODIUM 134 mmol/L (136-145)
[2017-09-27 07:50] LABS: ANION GAP 8 (8-16); BLOOD UREA NITROGEN 9 mg/dL (7-18); CALCIUM 8.8 mg/dL (8.5-10.1); CO2 27 mmol/L (21-32); CREATININE 0.6 mg/dL (0.55-1.02); GLUCOSE,RANDOM 163 mg/dL (74-106)
[2017-09-27 08:06] LABS: BASO % 0.4 % (0-2.0); EOS % 0.4 % (0-4.5); HEMOGLOBIN 11.6 GM/dL (10.7-15.3); LYMPH % 20.5 % (8-40); MCH 27.4 pg (25.7-33.7); MEAN CELL VOLUME 80.5 fl (80-96); MEAN PLT VOLUME 8.5 fl (7.5-11.1); MONO % 11.6 % (3.8-10.2); NEUT % 67.1 % (42.8-82.8); PLATELET COUNT 265 K/MM3 (134-434); RBC 4.22 M/mm3 (3.60-5.2); RDW 12.8 % (11.6-15.6); WHITE BLOOD COUNT 8.5 K/mm3 (4.0-10.0)
--- NOTE | 2017-09-27 09:25 | PN ---
Progress Note, Physician Chief Complaint: fevers, abd pain History of Present Illness: denies sob or cp no palpitations, syncope - Current Medication List Current Medications: Active Medications Acetaminophen (Tylenol -) 650 mg PO Q6H PRN PRN Reason: TEMP OVER 101 Last Admin: 09/27/17 03:02 Dose: 650 mg Enoxaparin Sodium (Lovenox -) 80 mg SQ BID [facility] Last Admin: 09/26/17 22:42 Dose: 80 mg Insulin Aspart (Novolog Vial Sliding Scale -) 1 vial SQ TIDAC [facility]; Protocol Last Admin: 09/27/17 06:18 Dose: 2 unit Metoprolol Succinate (Toprol Xl -) 25 mg PO BID [facility] Last Admin: 09/26/17 22:42 Dose: 25 mg Ranitidine HCl (Zantac -) 150 mg PO BID [facility] Last Admin: 09/26/17 22:46 Dose: Not Given Sitagliptin Phosphate (Januvia -) 100 mg PO DAILY@0700 [facility] Last Admin: 09/27/17 06:18 Dose: 100 mg - Objective Vital Signs: Vital Signs Temperature 98.2 F 09/27/17 08:17 Pulse Rate 96 H 09/27/17 08:17 Respiratory Rate 14 09/27/17 08:17 Blood Pressure 144/76 09/27/17 08:17 O2 Sat by Pulse Oximetry (%) 96 09/26/17 21:00 Constitutional: Yes: Well Nourished, No Distress, Calm Cardiovascular: Yes: Regular Rate and Rhythm, S1, S2. No: Gallop, Murmur Respiratory: Yes: Regular, CTA Bilaterally. No: Accessory Muscle Use, Rales, Wheezes Extremities: No: Cold Edema: No Neurological: Yes: Alert, Oriented Psychiatric: No: Agitated Labs: CBC, BMP 09/27/17 06:15 09/27/17 06:15 Assessment/Plan EKG: wnl cxr; widening of the mediatstinum in the rigth paratracheal region, could represent ectatic great vasculature, adenopathy can't be excluded. clear lung bush. chest CTA 09/2017: (prelim) small PE's in bilateral segmental branches. mild bibasilar atelectasis. multiple small 3-4 mm pulm nodules. mediastinal adenopathy. small pericardial effusion. + hepatic lesions susp for metastatic disease. 1.8 cm rt adrenal nodule. Abdominal LAD. ? mass in body of pancreas. abd u/s 09/2017: numerous hypoechoic mass lesions (suspicious for metastatic disease). Indeterminate hypoechogenicity at junction of the pancreatic tail and body - pancreatitis vs. mass. enlarged peripancreatic l. node. mild cbd dilatation. aorta wnl. abd u/s 06/2017: mild hepatomegaly with fatty infiltration vs. hepatocellular disease. tele: NSR Per outpatient pmd, UE u/s from [place] was notable for: occlusive thrombus in the more distal brachial and ulnar veins. There is complete thrombosis of the basilic vein to the level of its confluence with the axillary vein and complete thrombosis of the median cubital vein. There is a segment of occlusive thrombus in the cephalic vein at the level of the antecubital fossa. no thrombus in the left internal jugular, subclavian and axillary vein or in the brachial vein to the level of the antecubital fossa. ASSESSMENT/PLAN 57 yo with DM (insulin-requiring as outpt recently), recent abd u/s showing NAFLD, recent dx of spinal hemangioma, recent dx of thrombophlebitis who p/w diffuse pain/predominantly epigastric pain abnormal troponins - intermediate elevation, flat trend - not c/w ACS. EKG wnl. - secondary to PEs - no ischemia w/u currently indicated - f/u echo PE: - recent thrombus in UE, CTA here with small bilateral segmental PE's. - continue lovenox BID. - Transition to PO NOAC once clear that no procedures are planned. H-onc following. - for rpt echo today, to assess for RV strain. epigastric pain/ab lft's/hepatic lesions/+ fevers - Ongoing eval of ? hepatic lesions, (new since 06/2017 abd u/s), ? panc lesion , adrenal lesion and pulm nodules per pmd, h-onc. Possible plan for liver bx - r/o pancreatic or other solid malignancy, in light of recent diffuse thrombophlebitis/VTEs - blood cx's pending HTN - no prior dx. - toprol started here - bp controlled hyponatremia - per pmd
[2017-09-27] MEDS: RANITIDINE HCL 150 MG TABLET (FP) PO SCH ×2 (09:32→22:11)
[2017-09-27] MEDS: ENOXAPARIN NA (PORCINE) 80 MG/0.8 ML DISP.SYRIN SQ SCH ×2 (09:32→22:08)
[2017-09-27] MEDS: metoPROLOL SUCCINATE 25 MG TAB.SR.24H (FP) PO SCH ×2 (09:32→22:11)
--- NOTE | 2017-09-27 13:10 | PN ---
Progress Note, Physician Chief Complaint: Ms Nieves denies cp, sob, n/v. - Current Medication List Current Medications: Active Medications Acetaminophen (Tylenol -) 650 mg PO Q6H PRN PRN Reason: TEMP OVER 101 Last Admin: 09/27/17 03:02 Dose: 650 mg Enoxaparin Sodium (Lovenox -) 80 mg SQ BID [facility] Last Admin: 09/27/17 09:32 Dose: 80 mg Insulin Aspart (Novolog Vial Sliding Scale -) 1 vial SQ TIDAC [facility]; Protocol Last Admin: 09/27/17 12:27 Dose: 2 unit Metoprolol Succinate (Toprol Xl -) 25 mg PO BID [facility] Last Admin: 09/27/17 09:32 Dose: 25 mg Ranitidine HCl (Zantac -) 150 mg PO BID [facility] Last Admin: 09/27/17 09:32 Dose: 150 mg Sitagliptin Phosphate (Januvia -) 100 mg PO DAILY@0700 [facility] Last Admin: 09/27/17 06:18 Dose: 100 mg - Objective Vital Signs: Vital Signs Temperature 36.8 C 09/27/17 08:17 Pulse Rate 96 H 09/27/17 08:17 Respiratory Rate 14 09/27/17 08:17 Blood Pressure 144/76 09/27/17 08:17 O2 Sat by Pulse Oximetry (%) 96 09/26/17 21:00 Constitutional: Yes: Well Nourished, No Distress, Calm Cardiovascular: Yes: Regular Rate and Rhythm. No: Gallop, Murmur, Rub Respiratory: Yes: Regular, CTA Bilaterally. No: Rales, Rhonchi, Wheezes Gastrointestinal: Yes: Normal Bowel Sounds, Soft. No: Distention, Tenderness Extremities: Yes: WNL Edema: No Labs: CBC, BMP 09/27/17 06:15 09/27/17 06:15 Problem List - Problems (1) Pulmonary emboli Assessment/Plan: -found on CT scan with PE protocol -concerning for hypercoagulability from malignancy -heme/onc following -continue lovenox Code(s): I26.99 - OTHER PULMONARY EMBOLISM WITHOUT ACUTE COR PULMONALE Qualifiers: Pulmonary embolism type: other Chronicity: acute Acute cor pulmonale presence: without acute cor pulmonale Qualified Code(s): I26.99 - Other pulmonary embolism without acute cor pulmonale (2) Elevated troponin Assessment/Plan: -cardiology note reviewed -not ACS -follow up ECHO Code(s): R74.8 - ABNORMAL LEVELS OF OTHER SERUM ENZYMES (3) Pancreatic mass Assessment/Plan: -with liver masses -spoke with Dr Reynoso, also concern for spinal lesions -heme/onc note reviewed, will obtain CT A/P with/without contrast -also obtain MRI of spine with contrast -await oncology recommendations for timing of biospies considering fully anticoagulated with active emboli Code(s): K86.9 - DISEASE OF PANCREAS, UNSPECIFIED (4) T2DM (type 2 diabetes mellitus) Assessment/Plan: -diabetic diet -continue januvia -SSI Code(s): E11.9 - TYPE 2 DIABETES MELLITUS WITHOUT COMPLICATIONS
--- NOTE | 2017-09-27 23:21 | PN ---
Progress Note (short form) - Note Progress Note: Patient seen and examined Denies any complaints Anxious about CT results AFVSS Cor: RSR, No murmurs, No gallops Lungs: Clear to P&A Abd: Soft, Normal bowel sounds, No organomegaly Ext:No significant edema Abnormal Lab Results 09/26/17 09/27/17 09/27/17 07:00 06:15 06:15 Monocytes % 11.6 H Sodium 134 L Random Glucose 163 H Carcinoembryonic Ag 10.3 H Active Medications Generic Name Dose Route Start Last Admin Trade Name Freq PRN Reason Stop Dose Admin Acetaminophen 650 mg 09/25/17 21:36 09/28/17 01:18 Tylenol - PO 650 mg Q6H PRN Administration TEMP OVER 101 Enoxaparin Sodium 80 mg 09/25/17 22:00 09/27/17 22:08 Lovenox - SQ Not Given BID [facility] Insulin Aspart 1 vial 09/25/17 07:00 09/28/17 06:20 Novolog Vial Sliding Scale - SQ Not Given TIDAC [facility] Protocol Metoprolol Succinate 25 mg 09/25/17 10:00 09/27/17 22:11 Toprol Xl - PO 25 mg BID [facility] Administration Ranitidine HCl 150 mg 09/25/17 10:00 09/27/17 22:11 Zantac - PO 150 mg BID [facility] Administration Sitagliptin Phosphate 100 mg 09/25/17 07:00 09/28/17 06:20 Januvia - PO Not Given DAILY@0700 [facility] A/P 57 y/o female with weight loss, fever (Tmax 101.6), tachycardia with new hepatic , pancreatic masses discovered on USG abdomen, new segmental/subsegmental PE's and small pulmonary nodules noted on CTA 1.PE -recommend keeping pt on 1 mg/kg Lovenox divided BID - superficial thrombosis of both upper extremities and DVT of lower extremity -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 Low grade fevers--cultures neg. ? tumor fevers discussed CT findings and suspicions with patient
[2017-09-28] MEDS: ACETAMINOPHEN 325 MG TABLET (FP) PO PRN ×2 (01:18→18:58)
[2017-09-28] MEDS: INSULIN SLIDING SCALE (NOVOLOG) 1 VIAL SQ SCH ×4 (06:20→18:24)
[2017-09-28] MEDS: sitaGLIPtin PHOSPHATE 50 MG TABLET PO SCH (06:20)
[2017-09-28 07:39] LABS: BASO % 0.4 % (0-2.0); EOS % 0.2 % (0-4.5); HEMATOCRIT 35.1 % (32.4-45.2); LYMPH % 12.4 % (8-40); MCH 27.4 pg (25.7-33.7); MCHC 34.1 g/dl (32.0-36.0); MEAN CELL VOLUME 80.3 fl (80-96); MEAN PLT VOLUME 8.1 fl (7.5-11.1); PLATELET COUNT 250 K/MM3 (134-434); RBC 4.37 M/mm3 (3.60-5.2); RDW 12.8 % (11.6-15.6); WHITE BLOOD COUNT 8.9 K/mm3 (4.0-10.0)
[2017-09-28 07:47] LABS: INR 1.26 (0.82-1.09); PROTHROMBIN TIME (PATIENT) 14.2 SEC (9.7-13.0)
[2017-09-28 07:50] LABS: ACTIVATED PTT 28.2 SECONDS (26.9-34.4)
[2017-09-28 08:00] LABS: CHLORIDE 96 mmol/L (98-107); POTASSIUM 3.9 mmol/L (3.5-5.1); SODIUM 132 mmol/L (136-145)
[2017-09-28 08:26] LABS: ALBUMIN 3.4 g/dl (3.4-5.0); ALK PHOS 189 U/L (45-117); ANION GAP 11 (8-16); BILIRUBIN,DIRECT 0.3 mg/dL (0.0-0.2); BILIRUBIN,TOTAL 0.8 mg/dL (0.2-1.0); BLOOD UREA NITROGEN 7 mg/dL (7-18); CALCIUM 8.9 mg/dL (8.5-10.1); CO2 25 mmol/L (21-32); CREATININE 0.6 mg/dL (0.55-1.02); GLUCOSE,RANDOM 180 mg/dL (74-106); MAGNESIUM 2.2 mg/dL (1.8-2.4); PHOSPHOROUS 2.8 mg/dL (2.5-4.9); SGOT/AST 46 U/L (15-37); SGPT/ALT 58 U/L (12-78); TOT PROT 7.3 g/dl (6.4-8.2)
[2017-09-28] MEDS: RANITIDINE HCL 150 MG TABLET (FP) PO SCH ×2 (11:57→22:08)
[2017-09-28] MEDS: metoPROLOL SUCCINATE 25 MG TAB.SR.24H (FP) PO SCH ×3 (11:57→22:09)
--- NOTE | 2017-09-28 12:14 | PN ---
Progress Note (short form) - Note Progress Note: pt seen and examined very anxious emotional RUQ pain. AFVSS Cor: RSR, No murmurs, No gallops Lungs: Clear to P&A Abd: Soft, Normal bowel sounds, No organomegaly Ext:No significant edema INR, PTT INR 1.26 (0.82-1.09) H 09/28/17 06:15 Last Vital Signs Temp Pulse Resp BP Pulse Ox 98.5 F 107 H 20 134/76 96 09/28/17 05:59 09/28/17 05:59 09/28/17 05:59 09/28/17 05:59 09/27/17 21:00 CBC, BMP 09/28/17 06:15 09/28/17 06:15 Current Medications Generic Name Dose Route Start Last Admin Trade Name Freq PRN Reason Stop Dose Admin Acetaminophen 650 mg 09/25/17 21:36 09/28/17 01:18 Tylenol - PO 650 mg Q6H PRN Administration TEMP OVER 101 Enoxaparin Sodium 80 mg 09/25/17 22:00 09/27/17 22:08 Lovenox - SQ Not Given BID [facility] Insulin Aspart 1 vial 09/25/17 07:00 09/28/17 06:20 Novolog Vial Sliding Scale - SQ Not Given TIDAC [facility] Protocol Metoprolol Succinate 25 mg 09/25/17 10:00 09/28/17 11:57 Toprol Xl - PO Not Given BID [facility] Ranitidine HCl 150 mg 09/25/17 10:00 09/28/17 11:57 Zantac - PO Not Given BID [facility] Sitagliptin Phosphate 100 mg 09/25/17 07:00 09/28/17 06:20 Januvia - PO Not Given DAILY@0700 [facility] Highly suspicious for metastatic pancreatic Ca DVT/PE ?likely tumor fevers f/u tumor markers. d/w IR-- for guided biopsy liver today. coags wnl/platelets normal pending recs from IR , to start heparin drip without bolus repeat CBC post procedure in the evening. 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
[2017-09-28] MEDS: ENOXAPARIN NA (PORCINE) 80 MG/0.8 ML DISP.SYRIN SQ SCH (12:53)
--- NOTE | 2017-09-28 13:38 | CON.GI ---
Consult Consult Specialty:: Gastroenterology Referred by:: Dr. Shwetha Montague Reason for Consultation:: Pancreatic Mass - History of Present Illness Chief Complaint: Abdominal Pain History of Present Illness: Patient is a 57 year old female who presented to the ED for epigastric pain radiating to RUQ and upper back for the past week. Patient reports the pain was constant, "stabbing" in nature with no alleviating or exacerbating factors with a severity of 7/10 associated with nausea, dark urine, yellow stool, fatigue, and 25lb weight loss in the last month. Patient admits to being on a diet but reports "she fell off the diet" and continued to lose weight without trying. Patient reports these symptoms have been ongoing for the last 6 months and went to two PCP's for labwork and images. However, she was reports that she was told "everything looked good." Patient reports last Wednesday (09/24/17) she started experiencing severe RUQ and epigastric abdominal pain with nausea, lightheadedness and disorientation, which prompted this hospital visit. Further questioning revealed that patient experienced a diffuse pruritic rash six months ago and was taking corticosteroid cream and PO steroids. She states taking PO steroids for 4 months but intermittently, one week on and then one week off. She finished taking the steroids several weeks ago with resolution of rash. Patient reports history of fevers at home since August with a recent recording of 102.7 F. Reports the fever is intermittent and resolves on its own with no medication. Patient also reports she was following up with her tombstone carver 2 weeks ago and was diagnosed with new onset of diabetes Mellitus II and was started on Insulin. During her visit, the tombstone carver noticed edema, swelling, erythema of the left arm and sent her down to the emergency department at [place]. She was found to have a superficial thrombosis with no anticoagulation given. Patient reports having colonoscopy/EGD done at age 48 and was told everything was normal Patient denies any joint pain, jaundice, diet change, NSAID use, autoimmune disorders, hepatitis, transfusions, chest pain, palpitations, shortness of breath, diarrhea, constipation, hematuria, dysuria, melena, hematochezia, hematemesis, headaches. 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) ...: No Endocrine: Yes: Diabetes Mellitus (Insulin dependent ) - Alcohol/Substance Use Hx Alcohol Use: No History of Substance Use: reports: None - Smoking History Smoking history: Never smoked Have you smoked in the past 12 months: No - Social History Usual Living Arrangement: Alone ADL: Independent History of Recent Travel: No <Jacquelyn Gonzalez - Last Filed: 09/28/17 17:34> Home Medications <Jacquelyn Gonzalez - Last Filed: 09/28/17 17:34> <YancyTim - Last Filed: 09/28/17 18:11> - Allergies Allergies/Adverse Reactions: Allergies Allergy/AdvReac Type Severity Reaction Status Date / Time ampicillin Allergy Verified 09/24/17 18:24 Penicillins Allergy Verified 09/24/17 18:24 - Home Medications Home Medications: Ambulatory Orders Sitagliptin Phosphate [Januvia -] 100 mg PO DAILY@0700 09/24/17 Family Disease History - Family Disease History Family Disease History: Heart Disease: Brother <Jacquelyn Gonzalez - Last Filed: 09/28/17 17:34> Review of Systems - Review of Systems Constitutional: reports: Fever, Loss of Appetite (associated with nausea), Unintentional Wgt. Loss. denies: Chills, Lethargy HENT: reports: Toothache. denies: Difficult Swallowing Cardiovascular: reports: No Symptoms. denies: Chest Pain, Edema, Palpitations, Shortness of Breath Respiratory: reports: No Symptoms. denies: Cough, Hemoptysis, SOB, SOB on Exertion, Wheezing Gastrointestinal: reports: Abdominal Pain, Nausea. denies: Constipation, Diarrhea, Dysphagia, Rectal Bleeding, Vomiting, Vomiting Blood Genitourinary: reports: No Symptoms. denies: Burning, Dysuria, Flank Pain, Frequency, Hematuria Musculoskeletal: reports: No Symptoms. denies: Joint Pain, Joint Swelling Integumentary: reports: Pruritis, Rash Neurological: reports: No Symptoms. denies: Change in LOC, Change in Speech, Confusion, Dizziness, Numbness, Seizure Endocrine: reports: Unexplained Weight Loss. denies: Flushing, Intolerance to Cold, Intolerance to Heat Hematology/Lymphatic: reports: Other (superficial thrombophlebitis of LUE) Psychiatric: reports: No Symptoms. denies: Hallucinations, Panic <Jacquelyn Gonzalez - Last Filed: 09/28/17 17:34> Physical Exam-GI Vital Signs: Vital Signs Temperature 98.5 F 09/28/17 05:59 Pulse Rate 107 H 09/28/17 05:59 Respiratory Rate 20 09/28/17 05:59 Blood Pressure 134/76 09/28/17 05:59 O2 Sat by Pulse Oximetry (%) 96 09/27/17 21:00 Constitutional: Yes: Well Nourished, No Distress, Anxious Eyes: Yes: WNL, Conjunctiva Clear, EOM Intact, PERRL. No: Sclera Icterus HENT: Yes: WNL, Atraumatic, Normocephalic. No: Pharyngeal Erythema, Tonsillar Exudate Neck: Yes: WNL, Supple, Trachea Midline. No: Lymphadenopathy, Tenderness Cardiovascular: Yes: WNL, Regular Rate and Rhythm, S1, S2. No: Pulse Irregular , Bruit, JVD Respiratory: Yes: WNL, Regular, CTA Bilaterally. No: Accessory Muscle Use, Cough, Rales, Rhonchi, SOB, Stridor, Wheezes Gastrointestinal Inspection: Yes: WNL. No: Ascites, Distention, Hernia, Scars ...Auscultate: Yes: Hyperactive Bowel Sounds ...Palpate: Yes: Soft, Tenderness (upon palpation of RUQ and epigastric region) , Tenderness, Rebound (RUQ). No: Firm/Rigid, Guarding, Hepatomegaly, Mass ...Percussion: No: Fluid Wave, Tympanitic ...Rectal Exam: Yes: Deferred Musculoskeletal: Yes: WNL. No: Back Pain, Joint Swelling Extremities: Yes: WNL. No: Calf Tenderness, Cold, Cool, Cyanosis, Erythema Edema: No Integumentary: Yes: WNL. No: Erythema, Jaundice, Rash Neurological: Yes: WNL, Alert, Oriented. No: Aphasia, Dysarthria, Unsteady Gait Psychiatric: Yes: WNL, Alert, Oriented Labs: CBC, BMP 09/28/17 06:15 09/28/17 06:15 INR, PTT INR 1.26 (0.82-1.09) H 09/28/17 06:15 Laboratory Tests 09/26/17 09/28/17 09/28/17 07:00 06:15 06:15 INR 1.26 H PTT (Actin FS) 28.2 Total Bilirubin 0.8 Direct Bilirubin 0.3 H AST 46 H ALT 58 Alkaline Phosphatase 189 H Carcinoembryonic Ag 10.3 H <Jacquelyn Gonzalez - Last Filed: 09/28/17 17:34> Vital Signs: Vital Signs Temperature 98 F 09/28/17 13:34 Pulse Rate 86 09/28/17 14:32 Respiratory Rate 16 09/28/17 14:32 Blood Pressure 117/66 09/28/17 14:32 O2 Sat by Pulse Oximetry (%) 100 09/28/17 14:32 Labs: CBC, BMP 09/28/17 16:30 09/28/17 06:15 INR, PTT INR 1.26 (0.82-1.09) H 09/28/17 06:15 <Tim Haines - Last Filed: 09/28/17 18:11> Imaging - Results Cat Scan: Report Reviewed, Image Reviewed Ultrasound: Report Reviewed, Image Reviewed <Jacquelyn Gonzalez - Last Filed: 09/28/17 17:34> Problem List - Problems (1) Pancreatic mass Assessment/Plan: -Patient found to have Pancreatic lesion on U/S and CT suggestive of neoplastic disease with hepatic lesions of possible metastatic disease. Patient likely has primary pancreatic malignancy. CA 19-9 pending, CEA elevated >10 which is elevated in colon, biliary and pancreatic malignancies. Continue to monitor Daily labs and hepatic panel -Oncology following case Code(s): K86.9 - DISEASE OF PANCREAS, UNSPECIFIED (2) Hepatic lesion Assessment/Plan: -For liver biopsy today. Likely metastatic disease from primary pancreatic malignancy. -Continue to monitor hepatic panel Code(s): K76.9 - LIVER DISEASE, UNSPECIFIED (3) Abdominal pain Assessment/Plan: Patient has RUQ and epigastric pain radiating to the back. CT abdomen taken and revealed a peancreatic body lesion suggestive of neoplastic disease with multiple hepatic mass lesions. U/S also revealed CBD dilation of 7mm. Alk phos was elevated but likely due to Hepatic Cholestasis from hepatic lesions. Patient was tolerating diet. Additional recommendation, as per liver biopsy results. Patient will also require Colonscopy/EGD for further metastatic disease Code(s): R10.9 - UNSPECIFIED ABDOMINAL PAIN Qualifiers: Abdominal location: upper abdomen, unspecified Qualified Code(s): R10.10 - Upper abdominal pain, unspecified (4) Pulmonary emboli Assessment/Plan: -Likely secondary to malignancy -Patient started on Lovenox but held before liver biopsy. Will be placed on Heparin drip for AC. Pulmonology and cardiology team to determine outpatient anticoagulation. 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
--- NOTE | 2017-09-28 16:46 | PN ---
Progress Note, Physician Chief Complaint: Ms Nieves denies cp, sob, n/v. - Current Medication List Current Medications: Active Medications Acetaminophen (Tylenol -) 650 mg PO Q6H PRN PRN Reason: TEMP OVER 101 Last Admin: 09/28/17 01:18 Dose: 650 mg Enoxaparin Sodium (Lovenox -) 80 mg SQ BID [facility] Last Admin: 09/28/17 12:53 Dose: Not Given Insulin Aspart (Novolog Vial Sliding Scale -) 1 vial SQ TIDAC [facility]; Protocol Last Admin: 09/28/17 13:43 Dose: Not Given Metoprolol Succinate (Toprol Xl -) 25 mg PO BID [facility] Last Admin: 09/28/17 13:38 Dose: 25 mg Ranitidine HCl (Zantac -) 150 mg PO BID [facility] Last Admin: 09/28/17 11:57 Dose: Not Given Sitagliptin Phosphate (Januvia -) 100 mg PO DAILY@0700 [facility] Last Admin: 09/28/17 06:20 Dose: Not Given - Objective Vital Signs: Vital Signs Temperature 36.6 C 09/28/17 13:34 Pulse Rate 86 09/28/17 14:32 Respiratory Rate 16 09/28/17 14:32 Blood Pressure 117/66 09/28/17 14:32 O2 Sat by Pulse Oximetry (%) 100 09/28/17 14:32 Constitutional: Yes: Well Nourished, No Distress, Calm Cardiovascular: Yes: Regular Rate and Rhythm. No: Gallop, Murmur, Rub Respiratory: Yes: Regular, CTA Bilaterally. No: Rales, Rhonchi, Wheezes Gastrointestinal: Yes: Normal Bowel Sounds, Soft. No: Distention, Tenderness Extremities: Yes: WNL Edema: No Labs: CBC, BMP 09/28/17 06:15 09/28/17 06:15 INR, PTT INR 1.26 (0.82-1.09) H 09/28/17 06:15 Problem List - Problems (1) Pulmonary emboli Code(s): I26.99 - OTHER PULMONARY EMBOLISM WITHOUT ACUTE COR PULMONALE Qualifiers: Pulmonary embolism type: other Chronicity: acute Acute cor pulmonale presence: without acute cor pulmonale Qualified Code(s): I26.99 - Other pulmonary embolism without acute cor pulmonale (2) Elevated troponin Code(s): R74.8 - ABNORMAL LEVELS OF OTHER SERUM ENZYMES (3) Pancreatic mass Code(s): K86.9 - DISEASE OF PANCREAS, UNSPECIFIED (4) T2DM (type 2 diabetes mellitus) Code(s): E11.9 - TYPE 2 DIABETES MELLITUS WITHOUT COMPLICATIONS Qualifiers: Diabetes mellitus surgery manager insulin use: without surgery manager use Diabetes mellitus complication status: without complication Qualified Code(s): E11.9 - Type 2 diabetes mellitus without complications Assessment/Plan (1) Pulmonary emboli Assessment/Plan: -case d/w Dr Hernandez -holding lovenox today for biopsy -defer to restarting per hematology -CT scan also showing splenic and renal emboli Code(s): I26.99 - OTHER PULMONARY EMBOLISM WITHOUT ACUTE COR PULMONALE Qualifiers: Pulmonary embolism type: other Chronicity: acute Acute cor pulmonale presence: without acute cor pulmonale Qualified Code(s): I26.99 - Other pulmonary embolism without acute cor pulmonale (2) Elevated troponin Assessment/Plan: -cardiology note reviewed -not ACS Code(s): R74.8 - ABNORMAL LEVELS OF OTHER SERUM ENZYMES (3) Pancreatic mass Assessment/Plan: -concerning for malignancy -liver biopsy today -case d/w Dr Reynoso yesterday, will also obtain MRI spine with contrast as there was concern for malignancy there as well Code(s): K86.9 - DISEASE OF PANCREAS, UNSPECIFIED (4) T2DM (type 2 diabetes mellitus) Assessment/Plan: -diabetic diet -continue januvia -SSI Code(s): E11.9 - TYPE 2 DIABETES MELLITUS WITHOUT COMPLICATIONS
[2017-09-28] MEDS ORDERED: HEPARIN NA (PORCINE) 5,000 UNITS/ML 1ML VIAL IVPUSH PRN ×2 (17:07)
[2017-09-28 17:27] LABS: BASO % 0.3 % (0-2.0); EOS % 0.1 % (0-4.5); HEMATOCRIT 35.8 % (32.4-45.2); HEMOGLOBIN 11.9 GM/dL (10.7-15.3); LYMPH % 11.2 % (8-40); MCH 27.1 pg (25.7-33.7); MCHC 33.3 g/dl (32.0-36.0); MEAN CELL VOLUME 81.4 fl (80-96); MEAN PLT VOLUME 8.3 fl (7.5-11.1); MONO % 8.9 % (3.8-10.2); NEUT % 79.5 % (42.8-82.8); PLATELET COUNT 232 K/MM3 (134-434)
[2017-09-28] MEDS ORDERED: oxyCODONE HCL 5 MG TABLET PO ONE (20:23)
[2017-09-28] MEDS ORDERED: INSULIN (NOVOLOG) ASPART 100 UNITS/ML 10ML VIAL ONE (20:27)
[2017-09-28] MEDS: HEPARIN INFUSION - 25,000 UNITS/500 ML INFUS.BAG IVPB SCH (22:01)
[2017-09-29] MEDS: ACETAMINOPHEN 325 MG TABLET (FP) PO PRN ×3 (03:51→22:47)
[2017-09-29] MEDS: HEPARIN INFUSION - 25,000 UNITS/500 ML INFUS.BAG IVPB SCH (05:03)
[2017-09-29] MEDS: sitaGLIPtin PHOSPHATE 50 MG TABLET PO SCH (06:24)
[2017-09-29] MEDS: INSULIN SLIDING SCALE (NOVOLOG) 1 VIAL SQ SCH ×3 (06:25→17:48)
[2017-09-29] MEDS ORDERED: INSULIN (NOVOLOG) ASPART 100 UNITS/ML 10ML VIAL ONE (06:33)
[2017-09-29 08:40] LABS: BASO % 0.3 % (0-2.0); EOS % 0.2 % (0-4.5); HEMOGLOBIN 11.8 GM/dL (10.7-15.3); LYMPH % 10.1 % (8-40); MCH 27.2 pg (25.7-33.7); MCHC 33.8 g/dl (32.0-36.0); MEAN CELL VOLUME 80.6 fl (80-96); MONO % 9.3 % (3.8-10.2); NEUT % 80.1 % (42.8-82.8); PLATELET COUNT 226 K/MM3 (134-434); RBC 4.35 M/mm3 (3.60-5.2); WHITE BLOOD COUNT 9.6 K/mm3 (4.0-10.0)
[2017-09-29 09:13] LABS: BLOOD UREA NITROGEN 5 mg/dL (7-18); CHLORIDE 95 mmol/L (98-107); GLUCOSE,RANDOM 192 mg/dL (74-106); POTASSIUM 3.9 mmol/L (3.5-5.1); SODIUM 132 mmol/L (136-145)
[2017-09-29 09:16] LABS: ANION GAP 11 (8-16); CALCIUM 8.7 mg/dL (8.5-10.1); CO2 26 mmol/L (21-32); CREATININE 0.6 mg/dL (0.55-1.02); MAGNESIUM 2.2 mg/dL (1.8-2.4); PHOSPHOROUS 2.8 mg/dL (2.5-4.9)
--- NOTE | 2017-09-29 09:32 | PN ---
Progress Note (short form) - Note Progress Note: pt seen and examined very anxious emotional RUQ pain. AFVSS Cor: RSR, No murmurs, No gallops Lungs: Clear to P&A Abd: Soft, Normal bowel sounds, No organomegaly Ext:No significant edema INR, PTT INR 1.26 (0.82-1.09) H 09/28/17 06:15 Last Vital Signs Temp Pulse Resp BP Pulse Ox 98.5 F 107 H 20 134/76 96 09/28/17 05:59 09/28/17 05:59 09/28/17 05:59 09/28/17 05:59 09/27/17 21:00 CBC, BMP 09/28/17 06:15 09/28/17 06:15 Current Medications Generic Name Dose Route Start Last Admin Trade Name Freq PRN Reason Stop Dose Admin Acetaminophen 650 mg 09/25/17 21:36 09/28/17 01:18 Tylenol - PO 650 mg Q6H PRN Administration TEMP OVER 101 Enoxaparin Sodium 80 mg 09/25/17 22:00 09/27/17 22:08 Lovenox - SQ Not Given BID [facility] Insulin Aspart 1 vial 09/25/17 07:00 09/28/17 06:20 Novolog Vial Sliding Scale - SQ Not Given TIDAC [facility] Protocol Metoprolol Succinate 25 mg 09/25/17 10:00 09/28/17 11:57 Toprol Xl - PO Not Given BID [facility] Ranitidine HCl 150 mg 09/25/17 10:00 09/28/17 11:57 Zantac - PO Not Given BID [facility] Sitagliptin Phosphate 100 mg 09/25/17 07:00 09/28/17 06:20 Januvia - PO Not Given DAILY@0700 [facility] Highly suspicious for metastatic pancreatic Ca DVT/PE ?likely tumor fevers Ca 19-9-- >6000 f/u liver biopsy results stable CBC start lovenox for DVT/PE
[2017-09-29] MEDS: RANITIDINE HCL 150 MG TABLET (FP) PO SCH ×2 (11:16→22:46)
[2017-09-29] MEDS: metoPROLOL SUCCINATE 25 MG TAB.SR.24H (FP) PO SCH ×2 (11:16→22:46)
--- NOTE | 2017-09-29 11:24 | PN ---
Progress Note, Physician History of Present Illness: c/o nausea triggered by sight of food, no events overnight, not in pain, or distress. A Colonoscopy 5 years ago and an EGD "many years ago" were normal. Reports no dysphagia, odynophagia, chronic GERD-like symptoms, melena, changes in stool caliper, or hematochezia. - Current Medication List Current Medications: Active Medications Acetaminophen (Tylenol -) 650 mg PO Q6H PRN PRN Reason: TEMP OVER 101 Last Admin: 09/29/17 03:51 Dose: 650 mg Enoxaparin Sodium (Lovenox -) 80 mg SQ BID [facility] Heparin Sodium (Porcine) (Heparin -) 1,000 unit IVPUSH PRN PRN PRN Reason: Heparin Insulin Aspart (Novolog Vial Sliding Scale -) 1 vial SQ TIDAC [facility]; Protocol Last Admin: 09/29/17 06:25 Dose: 4 unit Lorazepam (Ativan Injection -) 1 mg IVPUSH ONCE ONE Stop: 09/29/17 11:09 Metoprolol Succinate (Toprol Xl -) 25 mg PO BID [facility] Last Admin: 09/29/17 11:16 Dose: 25 mg Ranitidine HCl (Zantac -) 150 mg PO BID [facility] Last Admin: 09/29/17 11:16 Dose: 150 mg Sitagliptin Phosphate (Januvia -) 100 mg PO DAILY@0700 [facility] Last Admin: 09/29/17 06:24 Dose: 100 mg - Objective Vital Signs: Vital Signs Temperature 99.3 F 09/29/17 06:00 Pulse Rate 107 H 09/29/17 06:00 Respiratory Rate 18 09/29/17 06:00 Blood Pressure 155/92 09/29/17 06:00 O2 Sat by Pulse Oximetry (%) 98 09/28/17 21:00 Constitutional: Yes: Anxious Eyes: Yes: Conjunctiva Clear HENT: Yes: Atraumatic Neck: Yes: Supple Cardiovascular: Yes: Regular Rate and Rhythm Respiratory: Yes: Regular Gastrointestinal: Yes: Soft. No: Tenderness Neurological: Yes: Alert, Oriented Labs: CBC, BMP 09/29/17 08:00 09/29/17 08:00 INR, PTT INR 1.26 (0.82-1.09) H 09/28/17 06:15 Laboratory Last Values WBC 9.6 K/mm3 (4.0-10.0) 09/29/17 08:00 RBC 4.35 M/mm3 (3.60-5.2) 09/29/17 08:00 Hgb 11.8 GM/dL (10.7-15.3) 09/29/17 08:00 Hct 35.0 % (32.4-45.2) 09/29/17 08:00 MCV 80.6 fl (80-96) 09/29/17 08:00 MCH 27.2 pg (25.7-33.7) 09/29/17 08:00 MCHC 33.8 g/dl (32.0-36.0) 09/29/17 08:00 RDW 13.0 % (11.6-15.6) 09/29/17 08:00 Plt Count 226 K/MM3 (134-434) 09/29/17 08:00 MPV 8.0 fl (7.5-11.1) 09/29/17 08:00 Absolute Neuts (auto) 7.7 # 09/29/17 08:00 Neutrophils % 80.1 % (42.8-82.8) 09/29/17 08:00 Lymphocytes % 10.1 % (8-40) 09/29/17 08:00 Monocytes % 9.3 % (3.8-10.2) 09/29/17 08:00 Eosinophils % 0.2 % (0-4.5) D 09/29/17 08:00 Basophils % 0.3 % (0-2.0) 09/29/17 08:00 Nucleated RBC % 0 % (0-0) 09/29/17 08:00 PT with INR 14.20 SEC (9.7-13.0) H 09/28/17 06:15 INR 1.26 (0.82-1.09) H 09/28/17 06:15 PTT (Actin FS) 29.8 SECONDS (26.9-34.4) 09/29/17 04:05 Sodium 132 mmol/L (136-145) L 09/29/17 08:00 Potassium 3.9 mmol/L (3.5-5.1) 09/29/17 08:00 Chloride 95 mmol/L (98-107) L 09/29/17 08:00 Carbon Dioxide 26 mmol/L (21-32) 09/29/17 08:00 Anion Gap 11 (8-16) 09/29/17 08:00 BUN 5 mg/dL (7-18) L 09/29/17 08:00 Creatinine 0.6 mg/dL (0.55-1.02) 09/29/17 08:00 Creat Clearance w eGFR > 60 (>60) 09/25/17 06:00 POC Glucometer 246 UNITS (80-120) 09/28/17 17:46 Random Glucose 192 mg/dL (74-106) H 09/29/17 08:00 Hemoglobin A1c % 8.2 % (4.8-6.0) H 09/25/17 06:00 Calcium 8.7 mg/dL (8.5-10.1) 09/29/17 08:00 Phosphorus 2.8 mg/dL (2.5-4.9) 09/29/17 08:00 Magnesium 2.2 mg/dL (1.8-2.4) 09/29/17 08:00 Total Bilirubin 0.8 mg/dL (0.2-1.0) 09/28/17 06:15 Direct Bilirubin 0.3 mg/dL (0.0-0.2) H 09/28/17 06:15 AST 46 U/L (15-37) H 09/28/17 06:15 ALT 58 U/L (12-78) 09/28/17 06:15 Alkaline Phosphatase 189 U/L (45-117) H 09/28/17 06:15 Creatine Kinase 110 IU/L (26-192) 09/25/17 13:49 Troponin I 0.38 ng/ml (0.00-0.05) H 09/25/17 13:49 Total Protein 7.3 g/dl (6.4-8.2) 09/28/17 06:15 Albumin 3.4 g/dl (3.4-5.0) 09/28/17 06:15 Triglycerides 113 mg/dL (35-160) 09/25/17 06:00 Cholesterol 162 mg/dL (50-200) 09/25/17 06:00 Total LDL Cholesterol 105 mg/dL (5-100) H 09/25/17 06:00 HDL Cholesterol 42 mg/dL (40-60) 09/25/17 06:00 Lipase 231 U/L (73-393) 09/26/17 07:00 Carcinoembryonic Ag 10.3 ng/mL (0.0-4.7) H 09/26/17 07:00 CA 19-9 Antigen 6003 U/mL (0-35) H 09/28/17 06:15 TSH 1.28 uIU/ml (0.358-3.74) 09/26/17 07:00 Urine Color Yellow 09/24/17 19:29 Urine Appearance Clear 09/24/17 19:29 Urine pH 6.0 (5.0-8.0) 09/24/17 19:29 Ur Specific [place] 1.021 (1.001-1.035) 09/24/17 19:29 Urine Protein 1+ (NEGATIVE) H 09/24/17 19:29 Urine Glucose (UA) 1+ (NEGATIVE) H D 09/24/17 19:29 Urine Ketones 1+ (NEGATIVE) H 09/24/17 19: Urine Blood 2+ (NEGATIVE) H 09/24/17 19:29 Urine Nitrite Negative (NEGATIVE) 09/24/17 19:29 Urine Bilirubin Negative (<2.0 mg/dL) 09/24/17 19: Urine Urobilinogen Negative mg/dL (0.2-1.0) 09/24/17 19:29 Ur Leukocyte Esterase Negative (NEGATIVE) 09/24/17 19:29 Urine WBC (Auto) 4 /hpf (3-5) 09/24/17 19:29 Urine RBC (Auto) 25 /hpf (0-3) 09/24/17 19:29 Ur Epithelial Cells Rare /HPF (FEW) 09/24/17 19:29 Urine Mucus Rare 09/24/17 19:29 Problem List - Problems (1) Elevated CA 19-9 level Code(s): R97.8 - OTHER ABNORMAL TUMOR MARKERS (2) Abnormal CT of liver Code(s): R93.2 - ABNORMAL FINDINGS ON DX IMAGING OF LIVER AND BILIARY TRACT (3) Pancreatic mass Code(s): K86.9 - DISEASE OF PANCREAS, UNSPECIFIED Assessment/Plan Suspicion for pancreatico-biliary neoplasm. Await liver biopsy results. A Colonoscopy 5 years ago and an EGD "many years ago" were normal. Reports no dysphagia, odynophagia, chronic GERD-like symptoms, melena, changes in stool caliper, or hematochezia. Neymar nielson PRN. Diet as tolerated.
--- NOTE | 2017-09-29 11:46 | PN ---
Progress Note, Physician Chief Complaint: Ms Nieves denies cp, sob, n/v. Says she feels depressed. RN called and says patient complains of abdominal pain. - Current Medication List Current Medications: Active Medications Acetaminophen (Tylenol -) 650 mg PO Q6H PRN PRN Reason: TEMP OVER 101 Last Admin: 09/29/17 03:51 Dose: 650 mg Enoxaparin Sodium (Lovenox -) 80 mg SQ BID [facility] Heparin Sodium (Porcine) (Heparin -) 1,000 unit IVPUSH PRN PRN PRN Reason: Heparin Insulin Aspart (Novolog Vial Sliding Scale -) 1 vial SQ TIDAC [facility]; Protocol Last Admin: 09/29/17 06:25 Dose: 4 unit Lorazepam (Ativan Injection -) 1 mg IVPUSH ONCE ONE Stop: 09/29/17 11:09 Metoprolol Succinate (Toprol Xl -) 25 mg PO BID [facility] Last Admin: 09/29/17 11:16 Dose: 25 mg Ranitidine HCl (Zantac -) 150 mg PO BID [facility] Last Admin: 09/29/17 11:16 Dose: 150 mg Sitagliptin Phosphate (Januvia -) 100 mg PO DAILY@0700 [facility] Last Admin: 09/29/17 06:24 Dose: 100 mg - Objective Vital Signs: Vital Signs Temperature 37.7 C H 09/29/17 11:22 Pulse Rate 96 H 09/29/17 11:22 Respiratory Rate 18 09/29/17 11:22 Blood Pressure 159/91 09/29/17 11:22 O2 Sat by Pulse Oximetry (%) 98 09/28/17 21:00 Constitutional: Yes: Well Nourished, No Distress, Calm Cardiovascular: Yes: Regular Rate and Rhythm. No: Gallop, Murmur, Rub Respiratory: Yes: Regular, CTA Bilaterally. No: Rales, Rhonchi, Wheezes Gastrointestinal: Yes: Normal Bowel Sounds, Soft. No: Distention, Tenderness Extremities: Yes: WNL Edema: No Labs: CBC, BMP 09/29/17 08:00 09/29/17 08:00 INR, PTT INR 1.26 (0.82-1.09) H 09/28/17 06:15 Problem List - Problems (1) Pulmonary emboli Code(s): I26.99 - OTHER PULMONARY EMBOLISM WITHOUT ACUTE COR PULMONALE Qualifiers: Pulmonary embolism type: other Chronicity: acute Acute cor pulmonale presence: without acute cor pulmonale Qualified Code(s): I26.99 - Other pulmonary embolism without acute cor pulmonale (2) Elevated troponin Code(s): R74.8 - ABNORMAL LEVELS OF OTHER SERUM ENZYMES (3) Pancreatic mass Code(s): K86.9 - DISEASE OF PANCREAS, UNSPECIFIED (4) T2DM (type 2 diabetes mellitus) Code(s): E11.9 - TYPE 2 DIABETES MELLITUS WITHOUT COMPLICATIONS Qualifiers: Diabetes mellitus chcf insulin use: without rn long term care use Diabetes mellitus complication status: without complication Qualified Code(s): E11.9 - Type 2 diabetes mellitus without complications Assessment/Plan (1) Pulmonary emboli Assessment/Plan: -lovenox restarted -patient hypercoagulable, most likely from malignancy -may need to be maintained on lovenox to prevent further clots Code(s): I26.99 - OTHER PULMONARY EMBOLISM WITHOUT ACUTE COR PULMONALE Qualifiers: Pulmonary embolism type: other Chronicity: acute Acute cor pulmonale presence: without acute cor pulmonale Qualified Code(s): I26.99 - Other pulmonary embolism without acute cor pulmonale (2) Elevated troponin Assessment/Plan: -cardiology note reviewed -not ACS Code(s): R74.8 - ABNORMAL LEVELS OF OTHER SERUM ENZYMES (3) Pancreatic mass Assessment/Plan: -MRI ordered -s/p liver biopsy -concerning for metastatic pancreatic cancer Code(s): K86.9 - DISEASE OF PANCREAS, UNSPECIFIED (4) T2DM (type 2 diabetes mellitus) Assessment/Plan: -diabetic diet -continue januvia -SSI Code(s): E11.9 - TYPE 2 DIABETES MELLITUS WITHOUT COMPLICATIONS (5) Fevers -suspect secondary to malignancy -however will consult ID to evaluate for possible infection
[2017-09-29] MEDS: ENOXAPARIN NA (PORCINE) 80 MG/0.8 ML DISP.SYRIN SQ SCH ×2 (13:43→22:46)
[2017-09-29] MEDS: morphine CARPU-JECT 2 MG/1 ML DISP.SYRIN IVPUSH PRN ×2 (14:20→22:47)
--- NOTE | 2017-09-29 14:30 | CON.ID ---
Consult Consult Specialty:: infectious diseases Referred by:: Reason for Consultation:: fevers - History of Present Illness Chief Complaint: weakness not feeling well generalized abd pain History of Present Illness: 57 y/o female with obesity, T2DM, recent left UE superficial VT -came to hospital with complaints of epigastric pain radiating to the back, according to the patient this all things started about a month back and she went to her primary and got blood work done and was told everything is fine . also she wasked to loose weight and she ended loosing 30 pounds after going on atkins diet she mentions that she did not feel well at all for past month patient was worked up and found USG abdomen shows a possible pancreatic tail & body mass as well as a LN adjacent to this mass (1.8 X1.3 cms). Multiple hepatic masses suspicious for metastatic disease. Recent CTA performed ) shows the presence of small subsegmental PE and patient was started on AC. looking at the complete picture strong suspicion of malignancy exists. patient had a live biopsy done and also onco is on board i was called into picture because patient has been spiking low grade fevers off and on 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) ...: No Endocrine: Yes: Diabetes Mellitus (Insulin dependent ) - Alcohol/Substance Use Hx Alcohol Use: No History of Substance Use: reports: None - Smoking History Smoking history: Never smoked Have you smoked in the past 12 months: No - Social History Usual Living Arrangement: Alone ADL: Independent History of Recent Travel: No Home Medications - Allergies Allergies/Adverse Reactions: Allergies Allergy/AdvReac Type Severity Reaction Status Date / Time ampicillin Allergy Verified 09/24/17 18:24 Penicillins Allergy Verified 09/24/17 18:24 - Home Medications Home Medications: Ambulatory Orders Sitagliptin Phosphate [Januvia -] 100 mg PO DAILY@0700 09/24/17 Family Disease History - Family Disease History Family Disease History: Heart Disease: Brother Review of Systems - Review of Systems Constitutional: reports: Lethargy, Unintentional Wgt. Loss, Weakness, Other ( generalized discomfort) Eyes: reports: No Symptoms HENT: reports: No Symptoms Neck: reports: No Symptoms Cardiovascular: reports: No Symptoms Respiratory: reports: No Symptoms Gastrointestinal: reports: Abdominal Pain, Other (discomfort) Genitourinary: reports: No Symptoms Musculoskeletal: reports: No Symptoms Integumentary: reports: No Symptoms Neurological: reports: No Symptoms Endocrine: reports: No Symptoms Hematology/Lymphatic: reports: No Symptoms Psychiatric: reports: No Symptoms Physical Exam Vital Signs: Vital Signs Temperature 100 F H 09/29/17 11:22 Pulse Rate 96 H 09/29/17 11:22 Respiratory Rate 18 09/29/17 11:22 Blood Pressure 159/91 09/29/17 11:22 O2 Sat by Pulse Oximetry (%) 98 09/28/17 21:00 Constitutional: Yes: Well Nourished, Obese, Other Eyes: Yes: Conjunctiva Clear Cardiovascular: Yes: Regular Rate and Rhythm Respiratory: Yes: Regular, CTA Bilaterally Gastrointestinal: Yes: Normal Bowel Sounds, Soft Musculoskeletal: Yes: WNL Extremities: Yes: WNL Neurological: Yes: Alert, Oriented Psychiatric: Yes: Alert, Oriented Labs: CBC, BMP 09/29/17 08:00 09/29/17 08:00 Imaging - Results Chest X-ray: Report Reviewed, Image Reviewed Cat Scan: Report Reviewed, Image Reviewed Ultrasound: Report Reviewed, Image Reviewed Assessment/Plan Problem List - Problems (1) Pulmonary emboli Code(s): I26.99 - OTHER PULMONARY EMBOLISM WITHOUT ACUTE COR PULMONALE Qualifiers: Pulmonary embolism type: other Chronicity: acute Acute cor pulmonale presence: without acute cor pulmonale Qualified Code(s): I26.99 - Other pulmonary embolism without acute cor pulmonale (2) Elevated troponin Code(s): R74.8 - ABNORMAL LEVELS OF OTHER SERUM ENZYMES (3) Pancreatic mass Code(s): K86.9 - DISEASE OF PANCREAS, UNSPECIFIED (4) T2DM (type 2 diabetes mellitus) Code(s): E11.9 - TYPE 2 DIABETES MELLITUS WITHOUT COMPLICATIONS Qualifiers: Diabetes mellitus usp insulin use: without usp use Diabetes mellitus complication status: without complication Qualified Code(s): E11.9 - Type 2 diabetes mellitus without complications 5 afunctional spleen plan will start patient on levaquin monitor for fevers
[2017-09-29] MEDS ORDERED: levoFLOXacin 750 MG TABLET PO SCH (15:15)
[2017-09-29] MEDS: oxyCODONE HCL 5 MG TABLET PO PRN ×2 (15:25→16:12)
[2017-09-29] MEDS: ONDANSETRON 4 MG/2 ML VIAL IVPUSH PRN (15:26)
[2017-09-29] MEDS ORDERED: hydrALAZINE HCL 20 MG/ML VIAL IVPB PRN (16:56)
[2017-09-29] MEDS: levoFLOXacin 500 MG, levoFLOXacin 250 MG PO SCH (17:48)
[2017-09-29 18:10] LABS: BASO % 0.3 % (0-2.0); EOS % 0.1 % (0-4.5); HEMATOCRIT 36.2 % (32.4-45.2); HEMOGLOBIN 12.1 GM/dL (10.7-15.3); LYMPH % 10.4 % (8-40); MCH 26.7 pg (25.7-33.7); MCHC 33.3 g/dl (32.0-36.0); MEAN CELL VOLUME 80.1 fl (80-96); MEAN PLT VOLUME 8.2 fl (7.5-11.1); MONO % 9.2 % (3.8-10.2); PLATELET COUNT 215 K/MM3 (134-434); RBC 4.52 M/mm3 (3.60-5.2); RDW 12.9 % (11.6-15.6); WHITE BLOOD COUNT 11.1 K/mm3 (4.0-10.0)
[2017-09-29 22:21] LABS: HEMATOCRIT 36.7 % (32.4-45.2); HEMOGLOBIN 12.2 GM/dL (10.7-15.3); MCH 26.7 pg (25.7-33.7); MCHC 33.2 g/dl (32.0-36.0); MEAN CELL VOLUME 80.3 fl (80-96); MEAN PLT VOLUME 8.2 fl (7.5-11.1); PLATELET COUNT 229 K/MM3 (134-434); RBC 4.57 M/mm3 (3.60-5.2); RDW 13.2 % (11.6-15.6); WHITE BLOOD COUNT 12.1 K/mm3 (4.0-10.0)
[2017-09-30] MEDS ORDERED: levoFLOXacin 750 MG TABLET PO SCH (06:00)
[2017-09-30] MEDS: levoFLOXacin 500 MG, levoFLOXacin 250 MG PO SCH (06:00)
[2017-09-30] MEDS: sitaGLIPtin PHOSPHATE 50 MG TABLET PO SCH (07:00)
[2017-09-30 08:56] LABS: ANION GAP 12 (8-16); BLOOD UREA NITROGEN 6 mg/dL (7-18); CALCIUM 9.3 mg/dL (8.5-10.1); CHLORIDE 90 mmol/L (98-107); CO2 25 mmol/L (21-32); CREATININE 0.6 mg/dL (0.55-1.02); GLUCOSE,RANDOM 183 mg/dL (74-106); PHOSPHOROUS 3.2 mg/dL (2.5-4.9); SODIUM 127 mmol/L (136-145)
[2017-09-30 09:03] LABS: BASO % 0.2 % (0-2.0); EOS % 0.2 % (0-4.5); HEMATOCRIT 35.9 % (32.4-45.2); HEMOGLOBIN 11.9 GM/dL (10.7-15.3); LYMPH % 9.4 % (8-40); MCH 26.5 pg (25.7-33.7); MCHC 33.3 g/dl (32.0-36.0); MEAN CELL VOLUME 79.5 fl (80-96); MEAN PLT VOLUME 8.1 fl (7.5-11.1); MONO % 9.6 % (3.8-10.2); NEUT % 80.6 % (42.8-82.8); PLATELET COUNT 243 K/MM3 (134-434); RBC 4.51 M/mm3 (3.60-5.2); RDW 13.1 % (11.6-15.6); WHITE BLOOD COUNT 12.1 K/mm3 (4.0-10.0)
[2017-09-30] MEDS: metoPROLOL SUCCINATE 25 MG TAB.SR.24H (FP) PO SCH ×2 (09:42→21:29)
[2017-09-30] MEDS: ACETAMINOPHEN 325 MG TABLET (FP) PO PRN ×2 (09:42→18:08)
[2017-09-30] MEDS: RANITIDINE HCL 150 MG TABLET (FP) PO SCH ×2 (09:42→21:29)
[2017-09-30] MEDS: ENOXAPARIN NA (PORCINE) 80 MG/0.8 ML DISP.SYRIN SQ SCH ×2 (09:42→21:29)
[2017-09-30] MEDS ORDERED: INSULIN (NOVOLOG) ASPART 100 UNITS/ML 10ML VIAL ONE (09:54)
[2017-09-30] MEDS: ONDANSETRON 4 MG/2 ML VIAL IVPUSH PRN (09:58)
--- NOTE | 2017-09-30 10:53 | PN ---
Progress Note, Physician History of Present Illness: stable no complaints still not feeling very well low grade fever - Current Medication List Current Medications: Active Medications Acetaminophen (Tylenol -) 650 mg PO Q6H PRN PRN Reason: TEMP OVER 101 Last Admin: 09/30/17 09:42 Dose: 650 mg Enoxaparin Sodium (Lovenox -) 80 mg SQ BID [facility] Last Admin: 09/30/17 09:42 Dose: 80 mg Heparin Sodium (Porcine) (Heparin -) 1,000 unit IVPUSH PRN PRN PRN Reason: Heparin Hydralazine HCl (Apresoline Injection -) 10 mg IVPB Q8H PRN PRN Reason: HYPERTENSION Last Admin: 09/29/17 17:47 Dose: 10 mg Insulin Aspart (Novolog Vial Sliding Scale -) 1 vial SQ TIDAC [facility]; Protocol Last Admin: 09/29/17 17:48 Dose: Not Given Levofloxacin 500 mg/ (Levofloxacin 250 mg) 750 mg PO DAILY@0600 [facility] Last Admin: 09/29/17 17:48 Dose: 750 mg Metoprolol Succinate (Toprol Xl -) 25 mg PO BID [facility] Last Admin: 09/30/17 09:42 Dose: 25 mg Morphine Sulfate (Morphine Injection -) 2 mg IVPUSH Q4H PRN PRN Reason: PAIN LEVEL 6-10 Last Admin: 09/29/17 22:47 Dose: 2 mg Ondansetron HCl (Zofran Injection) 4 mg IVPUSH Q4H PRN PRN Reason: NAUSEA AND/OR VOMITING Last Admin: 09/30/17 09:58 Dose: 4 mg Oxycodone HCl (Roxicodone -) 5 mg PO Q4H PRN PRN Reason: PAIN LEVEL 4 - 6 Last Admin: 09/29/17 16:12 Dose: 5 mg Ranitidine HCl (Zantac -) 150 mg PO BID [facility] Last Admin: 09/30/17 09:42 Dose: 150 mg Sitagliptin Phosphate (Januvia -) 100 mg PO DAILY@0700 [facility] Last Admin: 09/29/17 06:24 Dose: 100 mg - Objective Vital Signs: Vital Signs Temperature 98.1 F 09/30/17 09:10 Pulse Rate 103 H 09/30/17 09:10 Respiratory Rate 22 09/30/17 09:10 Blood Pressure 127/75 09/30/17 09:10 O2 Sat by Pulse Oximetry (%) 98 09/29/17 21:00 Constitutional: Yes: No Distress, Calm Cardiovascular: Yes: Regular Rate and Rhythm Respiratory: Yes: Regular, CTA Bilaterally Gastrointestinal: Yes: Normal Bowel Sounds, Soft Musculoskeletal: Yes: WNL Extremities: Yes: WNL Neurological: Yes: Alert, Oriented Psychiatric: Yes: Alert, Oriented Labs: CBC, BMP 09/30/17 07:24 09/30/17 06:35 INR, PTT INR 1.26 (0.82-1.09) H 09/28/17 06:15 Assessment/Plan Problem List - Problems (1) Pulmonary emboli Code(s): I26.99 - OTHER PULMONARY EMBOLISM WITHOUT ACUTE COR PULMONALE Qualifiers: Pulmonary embolism type: other Chronicity: acute Acute cor pulmonale presence: without acute cor pulmonale Qualified Code(s): I26.99 - Other pulmonary embolism without acute cor pulmonale (2) Elevated troponin Code(s): R74.8 - ABNORMAL LEVELS OF OTHER SERUM ENZYMES (3) Pancreatic mass Code(s): K86.9 - DISEASE OF PANCREAS, UNSPECIFIED (4) T2DM (type 2 diabetes mellitus) Code(s): E11.9 - TYPE 2 DIABETES MELLITUS WITHOUT COMPLICATIONS Qualifiers: Diabetes mellitus watermaster insulin use: without watermaster use Diabetes mellitus complication status: without complication Qualified Code(s): E11.9 - Type 2 diabetes mellitus without complications 5 afunctional spleen plan continue levaquin await for all the reports pain mgmt rest as per the team
[2017-09-30] MEDS: INSULIN SLIDING SCALE (NOVOLOG) 1 VIAL SQ SCH ×3 (13:14→18:09)
[2017-09-30] MEDS: SODIUM CHLORIDE 1,000 ML IV SCH (13:18)
[2017-09-30] MEDS: morphine SULFATE 4 MG/ML VIAL IVPUSH PRN (16:17)
--- NOTE | 2017-09-30 16:24 | PN ---
Progress Note (short form) - Note Progress Note: pt seen and examined very anxious emotional RUQ pain. AFVSS Cor: RSR, No murmurs, No gallops Lungs: Clear to P&A Abd: Soft, Normal bowel sounds, No organomegaly Ext:No significant edema INR, PTT INR 1.26 (0.82-1.09) H 09/28/17 06:15 Last Vital Signs Temp Pulse Resp BP Pulse Ox 98.5 F 107 H 20 134/76 96 09/28/17 05:59 09/28/17 05:59 09/28/17 05:59 09/28/17 05:59 09/27/17 21:00 CBC, BMP 09/28/17 06:15 09/28/17 06:15 Current Medications Generic Name Dose Route Start Last Admin Trade Name Freq PRN Reason Stop Dose Admin Acetaminophen 650 mg 09/25/17 21:36 09/28/17 01:18 Tylenol - PO 650 mg Q6H PRN Administration TEMP OVER 101 Enoxaparin Sodium 80 mg 09/25/17 22:00 09/27/17 22:08 Lovenox - SQ Not Given BID [facility] Insulin Aspart 1 vial 09/25/17 07:00 09/28/17 06:20 Novolog Vial Sliding Scale - SQ Not Given TIDAC [facility] Protocol Metoprolol Succinate 25 mg 09/25/17 10:00 09/28/17 11:57 Toprol Xl - PO Not Given BID [facility] Ranitidine HCl 150 mg 09/25/17 10:00 09/28/17 11:57 Zantac - PO Not Given BID [facility] Sitagliptin Phosphate 100 mg 09/25/17 07:00 09/28/17 06:20 Januvia - PO Not Given DAILY@0700 [facility] Highly suspicious for metastatic pancreatic Ca ( prelim liver path consistent with AdenoCa, awaiting origin identification) DVT/PE likely tumor fevers Metastatic bony disease noted Ca 19-9-- >6000 prelim liver path consistent with AdenoCa, awaiting origin identification stable CBC c/w lovenox for DVT/PE--will need this as a prison medication--pt aware pt would like to be seen at [facility] [place] , as per her arrangements are in progress.
[2017-09-30] MEDS: oxyCODONE HCL 5 MG TABLET PO PRN ×2 (18:07→22:18)
--- NOTE | 2017-09-30 18:17 | PN ---
Progress Note, Physician Chief Complaint: Ms Nieves says she is ok. Says pain is controlled. No cp, sob, n/v. - Current Medication List Current Medications: Active Medications Acetaminophen (Tylenol -) 650 mg PO Q6H PRN PRN Reason: TEMP OVER 101 Last Admin: 09/30/17 18:08 Dose: 650 mg Enoxaparin Sodium (Lovenox -) 80 mg SQ BID [facility] Last Admin: 09/30/17 09:42 Dose: 80 mg Heparin Sodium (Porcine) (Heparin -) 1,000 unit IVPUSH PRN PRN PRN Reason: Heparin Hydralazine HCl (Apresoline Injection -) 10 mg IVPB Q8H PRN PRN Reason: HYPERTENSION Last Admin: 09/29/17 17:47 Dose: 10 mg Sodium Chloride (Normal Saline -) 1,000 mls @ 75 mls/hr IV ASDIR [facility] Last Admin: 09/30/17 13:18 Dose: 75 mls/hr Insulin Aspart (Novolog Vial Sliding Scale -) 1 vial SQ TIDAC [facility]; Protocol Last Admin: 09/30/17 18:09 Dose: Not Given Levofloxacin 500 mg/ (Levofloxacin 250 mg) 750 mg PO DAILY@0600 [facility] Last Admin: 09/30/17 06:00 Dose: 750 mg Metoprolol Succinate (Toprol Xl -) 25 mg PO BID [facility] Last Admin: 09/30/17 09:42 Dose: 25 mg Morphine Sulfate (Morphine Sulfate) 2 mg IVPUSH Q4H PRN PRN Reason: PAIN LEVEL 6-10 Last Admin: 09/30/17 16:17 Dose: 2 mg Ondansetron HCl (Zofran Injection) 4 mg IVPUSH Q4H PRN PRN Reason: NAUSEA AND/OR VOMITING Last Admin: 09/30/17 09:58 Dose: 4 mg Oxycodone HCl (Roxicodone -) 5 mg PO Q4H PRN PRN Reason: PAIN LEVEL 4 - 6 Last Admin: 09/30/17 18:07 Dose: 5 mg Ranitidine HCl (Zantac -) 150 mg PO BID [facility] Last Admin: 09/30/17 09:42 Dose: 150 mg Sitagliptin Phosphate (Januvia -) 100 mg PO DAILY@0700 [facility] Last Admin: 09/30/17 07:00 Dose: 100 mg - Objective Vital Signs: Vital Signs Temperature 37.1 C 09/30/17 14:05 Pulse Rate 96 H 09/30/17 14:05 Respiratory Rate 18 09/30/17 14:05 Blood Pressure 147/62 09/30/17 14:05 O2 Sat by Pulse Oximetry (%) 98 09/29/17 21:00 Constitutional: Yes: Well Nourished, No Distress, Calm Cardiovascular: Yes: Regular Rate and Rhythm. No: Gallop, Murmur, Rub Respiratory: Yes: Regular, CTA Bilaterally. No: Rales, Rhonchi, Wheezes Gastrointestinal: Yes: Normal Bowel Sounds, Soft. No: Distention, Tenderness Extremities: Yes: WNL Edema: No Labs: CBC, BMP 09/30/17 07:24 09/30/17 06:35 INR, PTT INR 1.26 (0.82-1.09) H 09/28/17 06:15 Problem List - Problems (1) Pulmonary emboli Code(s): I26.99 - OTHER PULMONARY EMBOLISM WITHOUT ACUTE COR PULMONALE Qualifiers: Pulmonary embolism type: other Chronicity: acute Acute cor pulmonale presence: without acute cor pulmonale Qualified Code(s): I26.99 - Other pulmonary embolism without acute cor pulmonale (2) Elevated troponin Code(s): R74.8 - ABNORMAL LEVELS OF OTHER SERUM ENZYMES (3) Pancreatic mass Code(s): K86.9 - DISEASE OF PANCREAS, UNSPECIFIED (4) T2DM (type 2 diabetes mellitus) Code(s): E11.9 - TYPE 2 DIABETES MELLITUS WITHOUT COMPLICATIONS Qualifiers: Diabetes mellitus mcfp insulin use: without mcfp use Diabetes mellitus complication status: without complication Qualified Code(s): E11.9 - Type 2 diabetes mellitus without complications (5) Splenic infarct Code(s): D73.5 - INFARCTION OF SPLEEN (6) Renal infarct Code(s): N28.0 - ISCHEMIA AND INFARCTION OF KIDNEY (7) Hyponatremia Code(s): E87.1 - HYPO-OSMOLALITY AND HYPONATREMIA (8) Altered mental status Code(s): R41.82 - ALTERED MENTAL STATUS, UNSPECIFIED Assessment/Plan (1) 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 Assessment/Plan: -continue lovenox -hematology following Code(s): I26.99 - OTHER PULMONARY EMBOLISM WITHOUT ACUTE COR PULMONALE Qualifiers: Pulmonary embolism type: other Chronicity: acute Acute cor pulmonale presence: without acute cor pulmonale Qualified Code(s): I26.99 - Other pulmonary embolism without acute cor pulmonale (2) Elevated troponin Assessment/Plan: -cardiology note reviewed -not ACS Code(s): R74.8 - ABNORMAL LEVELS OF OTHER SERUM ENZYMES (3) Pancreatic mass with mets to liver and spine Assessment/Plan: -liver biopsy prelim adenocarcinoma -when stable, patient prefers to have care at [place] Code(s): K86.9 - DISEASE OF PANCREAS, UNSPECIFIED (4) T2DM (type 2 diabetes mellitus) Assessment/Plan: -diabetic diet -continue januvia -SSI Code(s): E11.9 - TYPE 2 DIABETES MELLITUS WITHOUT COMPLICATIONS (5) Fevers -ID consulted and case discussed -placed on levaquin (6) AMS -spoke with cousin, states patient has become forgetful -considering diagnosis, will obtain CT scan of the head (7) Hyponatremia -will hydrate with NS -recheck in am
[2017-10-01] MEDS: ACETAMINOPHEN 325 MG TABLET (FP) PO PRN (04:02)
[2017-10-01] MEDS: levoFLOXacin 500 MG, levoFLOXacin 250 MG PO SCH (06:03)
[2017-10-01] MEDS: INSULIN SLIDING SCALE (NOVOLOG) 1 VIAL SQ SCH ×3 (06:04→17:36)
[2017-10-01] MEDS: sitaGLIPtin PHOSPHATE 50 MG TABLET PO SCH (06:04)
[2017-10-01] MEDS: SODIUM CHLORIDE 1,000 ML IV SCH ×2 (06:07→17:30)
[2017-10-01 09:00] LABS: CHLORIDE 94 mmol/L (98-107); SODIUM 131 mmol/L (136-145)
--- NOTE | 2017-10-01 09:07 | CON.NEURO ---
Consult - History of Present Illness History of Present Illness: 57 yrs old obese F H/o steroid induced T2DM on Januvia and recently diagnosed unprovoked Left UE extensive superficial thrombophlebitis, (scan was done at [facility] and decisons was made not to AC) Ct scan back shows spinal Hemangioma, patient completed prolonged Steroid (4months) for skin rash, no w admitted with work up suspicious for metastatic pancreatic Ca ( prelim liver path consistent with AdenoCa, awaiting origin identification), +DVT/PE likely tumor fevers, also with Metastatic bony disease noted. called fo r? confusional spell last week and cT/MRI finding. CT HD Impression: Focal hypodensity is seen within the right insular cortex probably on the basis of acute infarction. Acute encephalitis may also demonstrate a similar CT appearance although less likely. MRI evaluation may be considered. A more subtle right parietal subcortical hypodense focus is seen which also may be on the basis of infarction versus less likely encephalitis. MRI LS SPINE : Findings suggestive of bone metastasis involving L1, L2 and L3 vertebral bodies without evidence of a compression fracture or subluxation. No intraspinal/ epidural mass or abnormal intraspinal enhancement identified. Multilevel mild disc bulge and bilateral facet hypertrophy, as described above. Multiple hepatic lesions suggestive of metastasis. Limited visualization of previously described pancreatic mass with heterogeneous signal intensity. Large fibroid. MRI T SPINE IMPRESSION: Large hemangioma in T10 vertebral body and a smaller one in T9 vertebral body. Atypical hemangioma versus a metastatic focus in T11 vertebral body measuring approximately 1 cm. No intraspinal mass, disc herniation, spinal canal stenosis or abnormal enhancement identified. Metastatic foci in the liver as well as foci of abnormal signal in the spleen are again seen. Poor visualization of previously described pancreatic mass on the T2 coronal images - Past Medical History Gastrointestinal: Yes: Other (Fatty lever) ...: No Endocrine: Yes: Diabetes Mellitus (Insulin dependent ) - Alcohol/Substance Use Hx Alcohol Use: No History of Substance Use: reports: None - Smoking History Smoking history: Never smoked Have you smoked in the past 12 months: No - Social History Usual Living Arrangement: Alone ADL: Independent History of Recent Travel: No Home Medications - Allergies Allergies/Adverse Reactions: Allergies Allergy/AdvReac Type Severity Reaction Status Date / Time ampicillin Allergy Verified 09/24/17 18:24 Penicillins Allergy Verified 09/24/17 18:24 - Home Medications Home Medications: Ambulatory Orders Sitagliptin Phosphate [Januvia -] 100 mg PO DAILY@0700 09/24/17 Family Disease History - Family Disease History Family Disease History: Heart Disease: Brother Physical Exam-Neuro Vital Signs: Vital Signs Temperature 99.3 F 10/01/17 04:35 Pulse Rate 110 H 10/01/17 04:35 Respiratory Rate 18 10/01/17 04:35 Blood Pressure 137/75 10/01/17 04:35 O2 Sat by Pulse Oximetry (%) 99 09/30/17 21:00 Labs: CBC, BMP 10/01/17 06:30 INR, PTT INR 1.26 (0.82-1.09) H 09/28/17 06:15 - Neuro Exam Level Of Consciousness: Yes: Alert (awake, alert, eomi, no facial, motor 5/5, reflexes symmetric plantars dwon ) Imaging - Results Cat Scan: Report Reviewed, Image Reviewed MRI: Report Reviewed, Image Reviewed Problem List - Problems (1) 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 if she requires PET she conveys interest to go to [facility]
[2017-10-01 09:08] LABS: ALBUMIN 2.8 g/dl (3.4-5.0); ALK PHOS 184 U/L (45-117); ANION GAP 13 (8-16); BILIRUBIN,TOTAL 0.6 mg/dL (0.2-1.0); BLOOD UREA NITROGEN 7 mg/dL (7-18); CALCIUM 8.7 mg/dL (8.5-10.1); CO2 24 mmol/L (21-32); CREATININE 0.6 mg/dL (0.55-1.02); GLUCOSE,RANDOM 174 mg/dL (74-106); PHOSPHOROUS 3.1 mg/dL (2.5-4.9); SGOT/AST 56 U/L (15-37); SGPT/ALT 49 U/L (12-78); TOT PROT 6.4 g/dl (6.4-8.2)
[2017-10-01] MEDS: ENOXAPARIN NA (PORCINE) 80 MG/0.8 ML DISP.SYRIN SQ SCH ×2 (09:55→22:19)
[2017-10-01] MEDS: RANITIDINE HCL 150 MG TABLET (FP) PO SCH ×2 (09:56→22:20)
[2017-10-01] MEDS: metoPROLOL SUCCINATE 25 MG TAB.SR.24H (FP) PO SCH ×2 (09:56→22:20)
--- NOTE | 2017-10-01 10:23 | CONSULT ---
Admitting History and Physical - Primary Care Physician PCP: Kumar Khan - Admission History of Present Illness: Per Oncology:Highly suspicious for metastatic pancreatic Ca ( prelim liver path consistent with AdenoCa, awaiting origin identification) DVT/PE likely tumor fevers Metastatic bony disease noted Ca 19-9-- >6000 prelim liver path consistent with AdenoCa, awaiting origin identification History Source: Patient Limitations to Obtaining History: No Limitations - Past Medical History Gastrointestinal: Yes: Other (Fatty lever) ...: No Heme/Onc: Yes: Other (Thromboplebitis) Endocrine: Yes: Diabetes Mellitus (Insulin dependent ) - Smoking History Smoking history: Never smoked Have you smoked in the past 12 months: No - Alcohol/Substance Use Hx Alcohol Use: No History of Substance Use: reports: None - Social History ADL: Independent History of Recent Travel: No History - Admission Reason For Visit: ABDOMINAL PAIN, ELEVATED TROPONIN LEVEL - Diagnostics CT Scan: Report Reviewed (CT HD Impression: Focal hypodensity is seen within the right insular cortex probably on the basis of acute infarction. Acute encephalitis may also demonstrate a similar CT appearance although less likely. MRI evaluation may be considered. A more subtle right parietal subcortical hypodense focus is seen which also may be on the basis of infarction versus less likely encephalitis.) MRI: Pending (mri brain), Report Reviewed (MRI LS SPINE : Findings suggestive of bone metastasis involving L1, L2 and L3 vertebral bodies without evidence of a compression fracture or subluxation. No intraspinal/epidural mass or abnormal intraspinal enhancement identified. Multilevel mild disc bulge and bilateral facet hypertrophy, as described above. Multiple hepatic lesions suggestive of metastasis. Limited visualization of previously described pancreatic mass with heterogeneous signal intensity. Large fibroid. MRI T SPINE IMPRESSION: Large hemangioma in T10 vertebral body and a smaller one in T9 vertebral body. Atypical hemangioma versus a metastatic focus in T11 vertebral body measuring approximately 1 cm. No intraspinal mass, disc herniation, spinal canal stenosis or abnormal enhancement identified. Metastatic foci in the liver as well as foci of abnormal signal in the spleen are again seen. Poor visualization of previously described pancreatic mass on the T2 coronal images) - General Mental Status: Alert and Oriented, Awake and Alert, Able to Follow Commands Attention: Intact Ability to Follow Directions: Excellent Head/Neck Control: WFL - Hearing Hearing: Normal Hearing Aide: No With Patient: No Speech Evaluation - Communication Primary Language: CHINESE Communication: Yes: Within Normal Limits Oral Expression Ability: Yes: No Impairment - Speech Production Able to Make Needs Known: Yes: WNL Intelligibility: Yes: WNL - Speech Characteristics Voice Loudness: Normal Voice Pitch: Yes: Normal Voice Phonatory-based Quality: Yes: Normal Speech Pattern: Normal Speech Clarity: < 100% Nasal Resonance: Normal Articulation: Yes: Precise - Language/Auditory Comprehension Follows: Yes: Complex Commands - Language/Verbal Expression Able to Respond to Simple Queries: Yes: WNL Able to Communicate Wants and Needs: Yes: WNL Functional Communication Status: Yes: WNL - Memory/Perception USP Memory: Yes: WNL Short Term Memory: Yes: WNL - Swallow Evaluation/Bedside Assessment Current Nutritional Intake: Regular, Thin Liquids Oral Secretions: Yes: WFL Dentition: Yes: Adequate Facial Symmetry at Rest: Facial Droop Right (slightly at rest. Baseline?) Facial Symmetry on Retraction: Symmetrical Facial Movement: Controlled Lingual Movement: Normal, Symmetric Lingual Speed of Movement: Normal Lingual Movement Strgth Against Opposition: Normal Lingual Movement Characteristics: Normal Velopharyngeal Movement: Normal Laryngeal Elevation: WFL Laryngeal Movement: Able to Palpate Rate of Intake: WFL Bolus Size: WFL Labial Seal: WFL Chewing: WFL Oral Prep Time: WFL A-P Transit: WFL Timing of Swallow: WFL Coughing/Throat Clear: No Change in Voice: No Recommendations - Speech Evaluation, Impression/Plan Impression: 57 yo with metastatic Cancer. Pt is a full code.r/o mets to brain. Speech/swallow/cognition intact. - Dysphagia Impressions/Plan Swallowing Skills: WF Dysphagia Impressions: No Impairment *Silent aspiration: cannot be R/O at bedside - Recommendations Diet Consistency: Regular Medication Administration: Whole with water Liquids: Thin Liquids
--- NOTE | 2017-10-01 10:56 | PN ---
Progress Note (short form) - Note Progress Note: s: denies sob or cp no palpitations, syncope - Current Medication List Current Medications Generic Name Dose Route Start Last Admin Trade Name Freq PRN Reason Stop Dose Admin Acetaminophen 650 mg 09/25/17 21:36 10/01/17 04:02 Tylenol - PO 650 mg Q6H PRN Administration TEMP OVER 101 Enoxaparin Sodium 80 mg 09/29/17 12:30 10/01/17 09:55 Lovenox - SQ 80 mg BID ERNA Administration Heparin Sodium (Porcine) 1,000 unit 09/28/17 17:07 Heparin - IVPUSH PRN PRN Heparin Hydralazine HCl 10 mg 09/29/17 16:56 09/29/17 17:47 Apresoline Injection - IVPB 10 mg Q8H PRN Administration HYPERTENSION Sodium Chloride 1,000 mls @ 75 mls/hr 09/30/17 13:30 10/01/17 06:07 Normal Saline - IV 75 mls/hr ASDIR [facility] Administration Insulin Aspart 1 vial 09/25/17 07:00 10/01/17 06:04 Novolog Vial Sliding Scale - SQ Not Given TIDAC [facility] Protocol Levofloxacin 500 mg/ 750 mg 09/29/17 16:45 10/01/17 06:03 Levofloxacin 250 mg PO 750 mg DAILY@0600 [facility] Administration Metoprolol Succinate 25 mg 09/25/17 10:00 10/01/17 09:56 Toprol Xl - PO 25 mg BID [facility] Administration Morphine Sulfate 2 mg 09/30/17 12:24 09/30/17 16:17 Morphine Sulfate IVPUSH 2 mg Q4H PRN Administration PAIN LEVEL 6-10 Ondansetron HCl 4 mg 09/29/17 15:10 09/30/17 09:58 Zofran Injection IVPUSH 4 mg Q4H PRN Administration NAUSEA AND/OR VOMITING Oxycodone HCl 5 mg 09/29/17 15:10 09/30/17 22:18 Roxicodone - PO 5 mg Q4H PRN Administration PAIN LEVEL 4 - 6 Ranitidine HCl 150 mg 09/25/17 10:00 10/01/17 09:56 Zantac - PO 150 mg BID [facility] Administration Sitagliptin Phosphate 100 mg 09/25/17 07:00 10/01/17 06:04 Januvia - PO 100 mg DAILY@0700 [facility] Administration - Objective Vital Signs: Vital Signs Period Temp Pulse Resp BP Sys/Montoya Pulse Ox Last 24 Hr 98.4 F-100.1 F 96-110 18-20 128-147/62-81 99 Constitutional: Yes: Well Nourished, No Distress, Calm Cardiovascular: Yes: Regular Rate and Rhythm, S1, S2. No: Gallop, Murmur Respiratory: Yes: Regular, CTA Bilaterally. No: Accessory Muscle Use, Rales, Wheezes Extremities: No: Cold Edema: No Neurological: Yes: Alert, Oriented Psychiatric: No: Agitated Labs: CBC, BMP 10/01/17 06:30 EKG: wnl cxr; widening of the mediatstinum in the rigth paratracheal region, could represent ectatic great vasculature, adenopathy can't be excluded. clear lung bush. chest CTA 09/2017: (prelim) small PE's in bilateral segmental branches. mild bibasilar atelectasis. multiple small 3-4 mm pulm nodules. mediastinal adenopathy. small pericardial effusion. + hepatic lesions susp for metastatic disease. 1.8 cm rt adrenal nodule. Abdominal LAD. ? mass in body of pancreas. abd u/s 09/2017: numerous hypoechoic mass lesions (suspicious for metastatic disease). Indeterminate hypoechogenicity at junction of the pancreatic tail and body - pancreatitis vs. mass. enlarged peripancreatic l. node. mild cbd dilatation. aorta wnl. echo 09/2017: nl lv/rv, no sig valve path abd u/s 06/2017: mild hepatomegaly with fatty infiltration vs. hepatocellular disease. tele: SR Per outpatient pmd, UE u/s from [place] was notable for: occlusive thrombus in the more distal brachial and ulnar veins. There is complete thrombosis of the basilic vein to the level of its confluence with the axillary vein and complete thrombosis of the median cubital vein. There is a segment of occlusive thrombus in the cephalic vein at the level of the antecubital fossa. no thrombus in the left internal jugular, subclavian and axillary vein or in the brachial vein to the level of the antecubital fossa. ASSESSMENT/PLAN 57 yo with DM (insulin-requiring as outpt recently), recent abd u/s showing NAFLD, recent dx of spinal hemangioma, recent dx of thrombophlebitis who p/w diffuse pain/predominantly epigastric pain abnormal troponins - intermediate elevation, flat trend - not c/w ACS. EKG wnl. Echo unremarkable. - secondary to PEs - no ischemia w/u currently indicated PE: - recent thrombus in UE, CTA here with small bilateral segmental PE's. - on ac epigastric pain/ab lft's/hepatic lesions/+ fevers - Ongoing eval of ? hepatic lesions, (new since 06/2017 abd u/s), ? panc lesion , adrenal lesion and pulm nodules per pmd, h-onc. Possible plan for liver bx - r/o pancreatic or other solid malignancy, in light of recent diffuse thrombophlebitis/VTEs HTN - no prior dx. - toprol started here - bp controlled hyponatremia - per pmd possible cva: -per neuro
[2017-10-01 11:00] LABS: HEMATOCRIT 34.1 % (32.4-45.2); HEMOGLOBIN 11.3 GM/dL (10.7-15.3); MCH 26.7 pg (25.7-33.7); MCHC 33.2 g/dl (32.0-36.0); MEAN CELL VOLUME 80.5 fl (80-96); PLATELET COUNT 241 K/MM3 (134-434); RBC 4.24 M/mm3 (3.60-5.2); RDW 13.2 % (11.6-15.6); WHITE BLOOD COUNT 11.5 K/mm3 (4.0-10.0)
--- NOTE | 2017-10-01 12:16 | PN ---
Progress Note, Physician Chief Complaint: Ms Nieves says she is ok. Mainly complains of depression. No cp, sob, n/v. Says appetite is a little better and she feels a little stronger. - Current Medication List Current Medications: Active Medications Acetaminophen (Tylenol -) 650 mg PO Q6H PRN PRN Reason: TEMP OVER 101 Last Admin: 10/01/17 04:02 Dose: 650 mg Enoxaparin Sodium (Lovenox -) 80 mg SQ BID [facility] Last Admin: 10/01/17 09:55 Dose: 80 mg Heparin Sodium (Porcine) (Heparin -) 1,000 unit IVPUSH PRN PRN PRN Reason: Heparin Hydralazine HCl (Apresoline Injection -) 10 mg IVPB Q8H PRN PRN Reason: HYPERTENSION Last Admin: 09/29/17 17:47 Dose: 10 mg Sodium Chloride (Normal Saline -) 1,000 mls @ 75 mls/hr IV ASDIR [facility] Last Admin: 10/01/17 06:07 Dose: 75 mls/hr Insulin Aspart (Novolog Vial Sliding Scale -) 1 vial SQ TIDAC [facility]; Protocol Last Admin: 10/01/17 06:04 Dose: Not Given Levofloxacin 500 mg/ (Levofloxacin 250 mg) 750 mg PO DAILY@0600 [facility] Last Admin: 10/01/17 06:03 Dose: 750 mg Metoprolol Succinate (Toprol Xl -) 25 mg PO BID [facility] Last Admin: 10/01/17 09:56 Dose: 25 mg Morphine Sulfate (Morphine Sulfate) 2 mg IVPUSH Q4H PRN PRN Reason: PAIN LEVEL 6-10 Last Admin: 09/30/17 16:17 Dose: 2 mg Ondansetron HCl (Zofran Injection) 4 mg IVPUSH Q4H PRN PRN Reason: NAUSEA AND/OR VOMITING Last Admin: 09/30/17 09:58 Dose: 4 mg Oxycodone HCl (Roxicodone -) 5 mg PO Q4H PRN PRN Reason: PAIN LEVEL 4 - 6 Last Admin: 09/30/17 22:18 Dose: 5 mg Ranitidine HCl (Zantac -) 150 mg PO BID [facility] Last Admin: 10/01/17 09:56 Dose: 150 mg Sitagliptin Phosphate (Januvia -) 100 mg PO DAILY@0700 [facility] Last Admin: 10/01/17 06:04 Dose: 100 mg - Objective Vital Signs: Vital Signs Temperature 36.9 C 10/01/17 10:01 Pulse Rate 103 H 10/01/17 10:01 Respiratory Rate 20 10/01/17 10:01 Blood Pressure 138/76 10/01/17 10:01 O2 Sat by Pulse Oximetry (%) 99 10/01/17 09:00 Constitutional: Yes: Well Nourished, No Distress, Calm Cardiovascular: Yes: Regular Rate and Rhythm. No: Gallop, Murmur, Rub Respiratory: Yes: Regular, CTA Bilaterally. No: Rales, Rhonchi, Wheezes Gastrointestinal: Yes: Normal Bowel Sounds, Soft. No: Distention, Tenderness Extremities: Yes: WNL Edema: No Labs: CBC, BMP 10/01/17 10:20 10/01/17 06:30 INR, PTT INR 1.26 (0.82-1.09) H 09/28/17 06:15 Problem List - Problems (1) Pulmonary emboli Code(s): I26.99 - OTHER PULMONARY EMBOLISM WITHOUT ACUTE COR PULMONALE Qualifiers: Pulmonary embolism type: other Chronicity: acute Acute cor pulmonale presence: without acute cor pulmonale Qualified Code(s): I26.99 - Other pulmonary embolism without acute cor pulmonale (2) Elevated troponin Code(s): R74.8 - ABNORMAL LEVELS OF OTHER SERUM ENZYMES (3) Pancreatic mass Code(s): K86.9 - DISEASE OF PANCREAS, UNSPECIFIED (4) T2DM (type 2 diabetes mellitus) Code(s): E11.9 - TYPE 2 DIABETES MELLITUS WITHOUT COMPLICATIONS Qualifiers: Diabetes mellitus shelter insulin use: without dedicated intermodal truck driver use Diabetes mellitus complication status: without complication Qualified Code(s): E11.9 - Type 2 diabetes mellitus without complications (5) Splenic infarct Code(s): D73.5 - INFARCTION OF SPLEEN (6) Renal infarct Code(s): N28.0 - ISCHEMIA AND INFARCTION OF KIDNEY (7) Hyponatremia Code(s): E87.1 - HYPO-OSMOLALITY AND HYPONATREMIA (8) Altered mental status Code(s): R41.82 - ALTERED MENTAL STATUS, UNSPECIFIED Assessment/Plan (1) 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 Assessment/Plan: -continue lovenox -hematology following -needs full anticoagulation Code(s): I26.99 - OTHER PULMONARY EMBOLISM WITHOUT ACUTE COR PULMONALE Qualifiers: Pulmonary embolism type: other Chronicity: acute Acute cor pulmonale presence: without acute cor pulmonale Qualified Code(s): I26.99 - Other pulmonary embolism without acute cor pulmonale (2) Elevated troponin Assessment/Plan: -resolved Code(s): R74.8 - ABNORMAL LEVELS OF OTHER SERUM ENZYMES (3) Pancreatic mass with mets to liver and spine Assessment/Plan: -liver biopsy prelim adenocarcinoma -when stable, patient prefers to have care at [place] Code(s): K86.9 - DISEASE OF PANCREAS, UNSPECIFIED (4) T2DM (type 2 diabetes mellitus) Assessment/Plan: -diabetic diet -continue januvia -[facility] Code(s): E11.9 - TYPE 2 DIABETES MELLITUS WITHOUT COMPLICATIONS (5) Fevers -ID following -continue levaquin (6) AMS -CT head showing mets vs emboli -appreciate neurology assistance -agree with MRI -continue lovenox (7) Hyponatremia -improved -continue hydration and recheck in am
[2017-10-01] MEDS: morphine SULFATE 4 MG/ML VIAL IVPUSH PRN ×2 (13:57→18:55)
--- NOTE | 2017-10-01 14:01 | PN ---
Progress Note, Physician History of Present Illness: stable going for mri of the head still complaining of abd discomfort - Current Medication List Current Medications: Active Medications Acetaminophen (Tylenol -) 650 mg PO Q6H PRN PRN Reason: TEMP OVER 101 Last Admin: 10/01/17 04:02 Dose: 650 mg Enoxaparin Sodium (Lovenox -) 80 mg SQ BID [facility] Last Admin: 10/01/17 09:55 Dose: 80 mg Heparin Sodium (Porcine) (Heparin -) 1,000 unit IVPUSH PRN PRN PRN Reason: Heparin Hydralazine HCl (Apresoline Injection -) 10 mg IVPB Q8H PRN PRN Reason: HYPERTENSION Last Admin: 09/29/17 17:47 Dose: 10 mg Sodium Chloride (Normal Saline -) 1,000 mls @ 75 mls/hr IV ASDIR [facility] Last Admin: 10/01/17 06:07 Dose: 75 mls/hr Insulin Aspart (Novolog Vial Sliding Scale -) 1 vial SQ TIDAC [facility]; Protocol Last Admin: 10/01/17 12:14 Dose: 2 unit Levofloxacin 500 mg/ (Levofloxacin 250 mg) 750 mg PO DAILY@0600 [facility] Last Admin: 10/01/17 06:03 Dose: 750 mg Metoprolol Succinate (Toprol Xl -) 25 mg PO BID [facility] Last Admin: 10/01/17 09:56 Dose: 25 mg Morphine Sulfate (Morphine Sulfate) 2 mg IVPUSH Q4H PRN PRN Reason: PAIN LEVEL 6-10 Last Admin: 10/01/17 13:57 Dose: 2 mg Ondansetron HCl (Zofran Injection) 4 mg IVPUSH Q4H PRN PRN Reason: NAUSEA AND/OR VOMITING Last Admin: 09/30/17 09:58 Dose: 4 mg Oxycodone HCl (Roxicodone -) 5 mg PO Q4H PRN PRN Reason: PAIN LEVEL 4 - 6 Last Admin: 09/30/17 22:18 Dose: 5 mg Ranitidine HCl (Zantac -) 150 mg PO BID [facility] Last Admin: 10/01/17 09:56 Dose: 150 mg Sitagliptin Phosphate (Januvia -) 100 mg PO DAILY@0700 [facility] Last Admin: 10/01/17 06:04 Dose: 100 mg - Objective Vital Signs: Vital Signs Temperature 98.4 F 10/01/17 10:01 Pulse Rate 103 H 10/01/17 10:01 Respiratory Rate 20 10/01/17 10:01 Blood Pressure 138/76 10/01/17 10:01 O2 Sat by Pulse Oximetry (%) 99 10/01/17 09:00 Constitutional: Yes: No Distress, Calm Cardiovascular: Yes: Regular Rate and Rhythm Respiratory: Yes: Regular, CTA Bilaterally Gastrointestinal: Yes: Normal Bowel Sounds, Soft Musculoskeletal: Yes: WNL Extremities: Yes: WNL Neurological: Yes: Alert, Oriented Psychiatric: Yes: Alert, Oriented Labs: CBC, BMP 10/01/17 10:20 10/01/17 06:30 INR, PTT INR 1.26 (0.82-1.09) H 09/28/17 06:15 Assessment/Plan Problem List - Problems (1) Pulmonary emboli Code(s): I26.99 - OTHER PULMONARY EMBOLISM WITHOUT ACUTE COR PULMONALE Qualifiers: Pulmonary embolism type: other Chronicity: acute Acute cor pulmonale presence: without acute cor pulmonale Qualified Code(s): I26.99 - Other pulmonary embolism without acute cor pulmonale (2) Elevated troponin Code(s): R74.8 - ABNORMAL LEVELS OF OTHER SERUM ENZYMES (3) Pancreatic mass Code(s): K86.9 - DISEASE OF PANCREAS, UNSPECIFIED (4) T2DM (type 2 diabetes mellitus) Code(s): E11.9 - TYPE 2 DIABETES MELLITUS WITHOUT COMPLICATIONS Qualifiers: Diabetes mellitus moth exterminator insulin use: without moth exterminator use Diabetes mellitus complication status: without complication Qualified Code(s): E11.9 - Type 2 diabetes mellitus without complications 5 afunctional spleen plan continue levaquin await for all the reports pain mgmt rest as per the team await for mri to be done
--- NOTE | 2017-10-01 15:00 | PN ---
Progress Note (short form) - Note Progress Note: pt seen and examined Events noted CTH noted Neuro c/s noted. AFVSS Cor: RSR, No murmurs, No gallops Lungs: Clear to P&A Abd: Soft, Normal bowel sounds, No organomegaly Ext:No significant edema Last Vital Signs Temp Pulse Resp BP Pulse Ox 98.4 F 103 H 20 138/76 99 10/01/17 10:01 10/01/17 10:01 10/01/17 10:01 10/01/17 10:01 10/01/17 09:00 CBC, BMP 10/01/17 10:20 10/01/17 06:30 Current Medications Generic Name Dose Route Start Last Admin Trade Name Freq PRN Reason Stop Dose Admin Acetaminophen 650 mg 09/25/17 21:36 10/01/17 04:02 Tylenol - PO 650 mg Q6H PRN Administration TEMP OVER 101 Enoxaparin Sodium 80 mg 09/29/17 12:30 10/01/17 09:55 Lovenox - SQ 80 mg BID [facility] Administration Heparin Sodium (Porcine) 1,000 unit 09/28/17 17:07 Heparin - IVPUSH PRN PRN Heparin Hydralazine HCl 10 mg 09/29/17 16:56 09/29/17 17:47 Apresoline Injection - IVPB 10 mg Q8H PRN Administration HYPERTENSION Sodium Chloride 1,000 mls @ 75 mls/hr 09/30/17 13:30 10/01/17 06:07 Normal Saline - IV 75 mls/hr ASDIR [facility] Administration Insulin Aspart 1 vial 09/25/17 07:00 10/01/17 12:14 Novolog Vial Sliding Scale - SQ 2 unit TIDAC [facility] Administration Protocol Levofloxacin 500 mg/ 750 mg 09/29/17 16:45 10/01/17 06:03 Levofloxacin 250 mg PO 750 mg DAILY@0600 [facility] Administration Metoprolol Succinate 25 mg 09/25/17 10:00 10/01/17 09:56 Toprol Xl - PO 25 mg BID [facility] Administration Morphine Sulfate 2 mg 09/30/17 12:24 10/01/17 13:57 Morphine Sulfate IVPUSH 2 mg Q4H PRN Administration PAIN LEVEL 6-10 Ondansetron HCl 4 mg 09/29/17 15:10 06/14/18 09:58 Zofran Injection IVPUSH 4 mg Q4H PRN Administration NAUSEA AND/OR VOMITING Oxycodone HCl 5 mg 09/29/17 15:10 09/30/17 22:18 Roxicodone - PO 5 mg Q4H PRN Administration PAIN LEVEL 4 - 6 Ranitidine HCl 150 mg 09/25/17 10:00 10/01/17 09:56 Zantac - PO 150 mg BID [facility] Administration Sitagliptin Phosphate 100 mg 09/25/17 07:00 10/01/17 06:04 Januvia - PO 100 mg DAILY@0700 [facility] Administration Liver biopsy with Adenoca (awaiting Origin,likely pancreatic) DVT/PE tumor fevers Metastatic bony disease noted ??possible brain parenchymal disease Ca 19-9-- >6000 prelim liver path consistent with AdenoCa, awaiting origin identification stable CBC c/w lovenox for DVT/PE--will need this as a [facility] medication f/u MRI brain pt would like to be seen at [facility] , as per her arrangements are in progress. If MRI brain is negative and she remains stable, would consider d.c,so she can get [facility] care and get systemic treatment as early as possible.
[2017-10-01] MEDS ORDERED: ALPRAZolam 0.25 MG TABLET PO STA (20:43)
[2017-10-02] MEDS: oxyCODONE HCL 5 MG TABLET PO PRN ×2 (03:27→11:20)
[2017-10-02] MEDS: sitaGLIPtin PHOSPHATE 50 MG TABLET PO SCH (06:21)
[2017-10-02] MEDS: levoFLOXacin 500 MG, levoFLOXacin 250 MG PO SCH (06:21)
[2017-10-02] MEDS: INSULIN SLIDING SCALE (NOVOLOG) 1 VIAL SQ SCH ×3 (06:22→16:50)
[2017-10-02 07:22] LABS: HEMATOCRIT 29.8 % (32.4-45.2); HEMOGLOBIN 10.1 GM/dL (10.7-15.3); MCH 27.3 pg (25.7-33.7); MEAN CELL VOLUME 80.3 fl (80-96); MEAN PLT VOLUME 7.7 fl (7.5-11.1); PLATELET COUNT 173 K/MM3 (134-434); RBC 3.71 M/mm3 (3.60-5.2); RDW 13.1 % (11.6-15.6); WHITE BLOOD COUNT 10.5 K/mm3 (4.0-10.0)
[2017-10-02 07:43] LABS: ANION GAP 8 (8-16); BLOOD UREA NITROGEN 8 mg/dL (7-18); CALCIUM 8.4 mg/dL (8.5-10.1); CHLORIDE 99 mmol/L (98-107); CO2 27 mmol/L (21-32); CREATININE 0.6 mg/dL (0.55-1.02); GLUCOSE,RANDOM 171 mg/dL (74-106); PHOSPHOROUS 2.6 mg/dL (2.5-4.9); POTASSIUM 4.1 mmol/L (3.5-5.1); SODIUM 134 mmol/L (136-145)
--- NOTE | 2017-10-02 08:11 | PN ---
Progress Note, Physician - Current Medication List Current Medications: Active Medications Acetaminophen (Tylenol -) 650 mg PO Q6H PRN PRN Reason: TEMP OVER 101 Last Admin: 10/01/17 04:02 Dose: 650 mg Enoxaparin Sodium (Lovenox -) 80 mg SQ BID [facility] Last Admin: 10/01/17 22:19 Dose: 80 mg Heparin Sodium (Porcine) (Heparin -) 1,000 unit IVPUSH PRN PRN PRN Reason: Heparin Hydralazine HCl (Apresoline Injection -) 10 mg IVPB Q8H PRN PRN Reason: HYPERTENSION Last Admin: 09/29/17 17:47 Dose: 10 mg Sodium Chloride (Normal Saline -) 1,000 mls @ 75 mls/hr IV ASDIR [facility] Last Admin: 10/01/17 17:30 Dose: 75 mls/hr Insulin Aspart (Novolog Vial Sliding Scale -) 1 vial SQ TIDAC [facility]; Protocol Last Admin: 10/02/17 06:22 Dose: 2 unit Levofloxacin 500 mg/ (Levofloxacin 250 mg) 750 mg PO DAILY@0600 [facility] Last Admin: 10/02/17 06:21 Dose: 750 mg Metoprolol Succinate (Toprol Xl -) 25 mg PO BID [facility] Last Admin: 10/01/17 22:20 Dose: 25 mg Morphine Sulfate (Morphine Sulfate) 2 mg IVPUSH Q4H PRN PRN Reason: PAIN LEVEL 6-10 Last Admin: 10/01/17 18:55 Dose: 2 mg Ondansetron HCl (Zofran Injection) 4 mg IVPUSH Q4H PRN PRN Reason: NAUSEA AND/OR VOMITING Last Admin: 09/30/17 09:58 Dose: 4 mg Oxycodone HCl (Roxicodone -) 5 mg PO Q4H PRN PRN Reason: PAIN LEVEL 4 - 6 Last Admin: 10/02/17 03:27 Dose: 5 mg Ranitidine HCl (Zantac -) 150 mg PO BID [facility] Last Admin: 10/01/17 22:20 Dose: 150 mg Sitagliptin Phosphate (Januvia -) 100 mg PO DAILY@0700 [facility] Last Admin: 10/02/17 06:21 Dose: 100 mg - Objective Vital Signs: Vital Signs Temperature 99.2 F 10/02/17 06:00 Pulse Rate 99 H 10/02/17 06:00 Respiratory Rate 20 10/02/17 06:00 Blood Pressure 146/82 10/02/17 06:00 O2 Sat by Pulse Oximetry (%) 99 10/01/17 21:00 Labs: CBC, BMP 10/02/17 06:00 10/02/17 06:00 INR, PTT INR 1.26 (0.82-1.09) H 09/28/17 06:15 Assessment/Plan chest CTA 09/2017: (prelim) small PE's in bilateral segmental branches. mild bibasilar atelectasis. multiple small 3-4 mm pulm nodules. mediastinal adenopathy. small pericardial effusion. + hepatic lesions susp for metastatic disease. 1.8 cm rt adrenal nodule. Abdominal LAD. ? mass in body of pancreas. echo 09/2017: nl lv/rv, no sig valve path ASSESSMENT/PLAN 57 yo with DM (insulin-requiring as outpt recently), recent abd u/s showing NAFLD, recent dx of spinal hemangioma, recent dx of thrombophlebitis who p/w diffuse pain/predominantly epigastric pain abnormal troponins - secondary to PE (intermediate elevation, flat trend with normal EKG) - no ischemia w/u currently indicated PE: - recent thrombus in UE, CTA here with small bilateral segmental PE's. 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 - toprol started here - bp reasonably controlled hyponatremia - stable possible cva: -per neuro
[2017-10-02] MEDS: ENOXAPARIN NA (PORCINE) 80 MG/0.8 ML DISP.SYRIN SQ SCH ×2 (10:13→22:00)
[2017-10-02] MEDS: metoPROLOL SUCCINATE 25 MG TAB.SR.24H (FP) PO SCH ×2 (10:13→21:59)
[2017-10-02] MEDS: RANITIDINE HCL 150 MG TABLET (FP) PO SCH ×2 (10:13→21:59)
--- NOTE | 2017-10-02 11:16 | PN ---
Progress Note, Physician History of Present Illness: patient stable no new issuses mri done awaiting for report - Current Medication List Current Medications: Active Medications Acetaminophen (Tylenol -) 650 mg PO Q6H PRN PRN Reason: TEMP OVER 101 Last Admin: 10/01/17 04:02 Dose: 650 mg Enoxaparin Sodium (Lovenox -) 80 mg SQ BID [facility] Last Admin: 10/02/17 10:13 Dose: 80 mg Heparin Sodium (Porcine) (Heparin -) 1,000 unit IVPUSH PRN PRN PRN Reason: Heparin Hydralazine HCl (Apresoline Injection -) 10 mg IVPB Q8H PRN PRN Reason: HYPERTENSION Last Admin: 09/29/17 17:47 Dose: 10 mg Sodium Chloride (Normal Saline -) 1,000 mls @ 75 mls/hr IV ASDIR [facility] Last Admin: 10/01/17 17:30 Dose: 75 mls/hr Insulin Aspart (Novolog Vial Sliding Scale -) 1 vial SQ TIDAC [facility]; Protocol Last Admin: 10/02/17 06:22 Dose: 2 unit Levofloxacin 500 mg/ (Levofloxacin 250 mg) 750 mg PO DAILY@0600 [facility] Last Admin: 10/02/17 06:21 Dose: 750 mg Metoprolol Succinate (Toprol Xl -) 25 mg PO BID [facility] Last Admin: 10/02/17 10:13 Dose: 25 mg Morphine Sulfate (Morphine Sulfate) 2 mg IVPUSH Q4H PRN PRN Reason: PAIN LEVEL 6-10 Last Admin: 10/01/17 18:55 Dose: 2 mg Ondansetron HCl (Zofran Injection) 4 mg IVPUSH Q4H PRN PRN Reason: NAUSEA AND/OR VOMITING Last Admin: 09/30/17 09:58 Dose: 4 mg Oxycodone HCl (Roxicodone -) 5 mg PO Q4H PRN PRN Reason: PAIN LEVEL 4 - 6 Last Admin: 10/02/17 03:27 Dose: 5 mg Ranitidine HCl (Zantac -) 150 mg PO BID [facility] Last Admin: 10/02/17 10:13 Dose: 150 mg Sitagliptin Phosphate (Januvia -) 100 mg PO DAILY@0700 [facility] Last Admin: 10/02/17 06:21 Dose: 100 mg - Objective Vital Signs: Vital Signs Temperature 100.4 F H 10/02/17 10:00 Pulse Rate 108 H 10/02/17 10:00 Respiratory Rate 20 10/02/17 10:00 Blood Pressure 134/73 10/02/17 10:00 O2 Sat by Pulse Oximetry (%) 99 10/01/17 21:00 Constitutional: Yes: No Distress, Calm Cardiovascular: Yes: Regular Rate and Rhythm Respiratory: Yes: Regular, CTA Bilaterally Gastrointestinal: Yes: Normal Bowel Sounds, Soft Musculoskeletal: Yes: WNL Extremities: Yes: WNL Neurological: Yes: Alert, Oriented Psychiatric: Yes: Alert, Oriented Labs: CBC, BMP 10/02/17 06:00 10/02/17 06:00 INR, PTT INR 1.26 (0.82-1.09) H 09/28/17 06:15 Assessment/Plan Problem List - Problems (1) Pulmonary emboli Code(s): I26.99 - OTHER PULMONARY EMBOLISM WITHOUT ACUTE COR PULMONALE Qualifiers: Pulmonary embolism type: other Chronicity: acute Acute cor pulmonale presence: without acute cor pulmonale Qualified Code(s): I26.99 - Other pulmonary embolism without acute cor pulmonale (2) Elevated troponin Code(s): R74.8 - ABNORMAL LEVELS OF OTHER SERUM ENZYMES (3) Pancreatic mass Code(s): K86.9 - DISEASE OF PANCREAS, UNSPECIFIED (4) T2DM (type 2 diabetes mellitus) Code(s): E11.9 - TYPE 2 DIABETES MELLITUS WITHOUT COMPLICATIONS Qualifiers: Diabetes mellitus senior living insulin use: without termite control representative use Diabetes mellitus complication status: without complication Qualified Code(s): E11.9 - Type 2 diabetes mellitus without complications 5 afunctional spleen plan continue levaquin await for mri result pain mgmt rest as per the team await for mri to be done
[2017-10-02] MEDS: morphine SULFATE 4 MG/ML VIAL IVPUSH PRN (11:21)
--- NOTE | 2017-10-02 12:42 | PN ---
Progress Note, Physician History of Present Illness: Patient without shortness of breath or SINGH today. Notes mainly depressed and anxious about her diagnosis (likely pancreatic matastatic malignancy). Had MRI head last night, results still pending. - Current Medication List Current Medications: Active Medications Acetaminophen (Tylenol -) 650 mg PO Q6H PRN PRN Reason: TEMP OVER 101 Last Admin: 10/01/17 04:02 Dose: 650 mg Enoxaparin Sodium (Lovenox -) 80 mg SQ BID [facility] Last Admin: 10/02/17 10:13 Dose: 80 mg Heparin Sodium (Porcine) (Heparin -) 1,000 unit IVPUSH PRN PRN PRN Reason: Heparin Hydralazine HCl (Apresoline Injection -) 10 mg IVPB Q8H PRN PRN Reason: HYPERTENSION Last Admin: 09/29/17 17:47 Dose: 10 mg Sodium Chloride (Normal Saline -) 1,000 mls @ 75 mls/hr IV ASDIR [facility] Last Admin: 10/01/17 17:30 Dose: 75 mls/hr Insulin Aspart (Novolog Vial Sliding Scale -) 1 vial SQ TIDAC [facility]; Protocol Last Admin: 10/02/17 11:29 Dose: 2 unit Levofloxacin 500 mg/ (Levofloxacin 250 mg) 750 mg PO DAILY@0600 [facility] Last Admin: 10/02/17 06:21 Dose: 750 mg Metoprolol Succinate (Toprol Xl -) 25 mg PO BID [facility] Last Admin: 10/02/17 10:13 Dose: 25 mg Morphine Sulfate (Morphine Sulfate) 2 mg IVPUSH Q4H PRN PRN Reason: PAIN LEVEL 6-10 Last Admin: 10/02/17 11:21 Dose: 2 mg Ondansetron HCl (Zofran Injection) 4 mg IVPUSH Q4H PRN PRN Reason: NAUSEA AND/OR VOMITING Last Admin: 09/30/17 09:58 Dose: 4 mg Oxycodone HCl (Roxicodone -) 5 mg PO Q4H PRN PRN Reason: PAIN LEVEL 4 - 6 Last Admin: 10/02/17 11:20 Dose: 5 mg Ranitidine HCl (Zantac -) 150 mg PO BID [facility] Last Admin: 10/02/17 10:13 Dose: 150 mg Sitagliptin Phosphate (Januvia -) 100 mg PO DAILY@0700 [facility] Last Admin: 10/02/17 06:21 Dose: 100 mg - Objective Vital Signs: Vital Signs Temperature 100.4 F H 10/02/17 10:00 Pulse Rate 108 H 10/02/17 10:00 Respiratory Rate 20 10/02/17 10:00 Blood Pressure 134/73 10/02/17 10:00 O2 Sat by Pulse Oximetry (%) 99 10/01/17 21:00 Eyes: Yes: Conjunctiva Clear, EOM Intact, PERRL HENT: Yes: Atraumatic, Normocephalic Neck: Yes: Supple, Trachea Midline Cardiovascular: Yes: Regular Rate and Rhythm, S1, S2. No: Murmur Respiratory: Yes: Regular, CTA Bilaterally Gastrointestinal: Yes: Normal Bowel Sounds, Soft. 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
--- NOTE | 2017-10-02 12:56 | PN ---
Progress Note (short form) - Note Progress Note: tele reviewed: nsr with sinus tach, artifact.
--- NOTE | 2017-10-02 14:42 | PN ---
Progress Note (short form) - Note Progress Note: pt seen and examined pt denies any headaches, difficulty swallowing, blurry vision. AFVSS Cor: RSR, No murmurs, No gallops Lungs: Clear to P&A Abd: Soft, Normal bowel sounds, No organomegaly Ext:No significant edema Last Vital Signs Temp Pulse Resp BP Pulse Ox 98.4 F 103 H 20 138/76 99 10/01/17 10:01 10/01/17 10:01 10/01/17 10:01 10/01/17 10:01 10/01/17 09:00 CBC, BMP 10/01/17 10:20 10/01/17 06:30 Current Medications Generic Name Dose Route Start Last Admin Trade Name Freq PRN Reason Stop Dose Admin Acetaminophen 650 mg 09/25/17 21:36 10/01/17 04:02 Tylenol - PO 650 mg Q6H PRN Administration TEMP OVER 101 Enoxaparin Sodium 80 mg 09/29/17 12:30 10/01/17 09:55 Lovenox - SQ 80 mg BID [facility] Administration Heparin Sodium (Porcine) 1,000 unit 09/28/17 17:07 Heparin - IVPUSH PRN PRN Heparin Hydralazine HCl 10 mg 09/29/17 16:56 09/29/17 17:47 Apresoline Injection - IVPB 10 mg Q8H PRN Administration HYPERTENSION Sodium Chloride 1,000 mls @ 75 mls/hr 09/30/17 13:30 10/01/17 06:07 Normal Saline - IV 75 mls/hr ASDIR [facility] Administration Insulin Aspart 1 vial 09/25/17 07:00 10/01/17 12:14 Novolog Vial Sliding Scale - SQ 2 unit TIDAC [facility] Administration Protocol Levofloxacin 500 mg/ 750 mg 09/29/17 16:45 10/01/17 06:03 Levofloxacin 250 mg PO 750 mg DAILY@0600 [facility] Administration Metoprolol Succinate 25 mg 09/25/17 10:00 10/01/17 09:56 Toprol Xl - PO 25 mg BID [facility] Administration Morphine Sulfate 2 mg 09/30/17 12:24 10/01/17 13:57 Morphine Sulfate IVPUSH 2 mg Q4H PRN Administration PAIN LEVEL 6-10 Ondansetron HCl 4 mg 09/29/17 15:10 09/30/17 09:58 Zofran Injection IVPUSH 4 mg Q4H PRN Administration NAUSEA AND/OR VOMITING Oxycodone HCl 5 mg 09/29/17 15:10 09/30/17 22:18 Roxicodone - PO 5 mg Q4H PRN Administration PAIN LEVEL 4 - 6 Ranitidine HCl 150 mg 09/25/17 10:00 10/01/17 09:56 Zantac - PO 150 mg BID [facility] Administration Sitagliptin Phosphate 100 mg 09/25/17 07:00 10/01/17 06:04 Januvia - PO 100 mg DAILY@0700 [facility] Administration Liver biopsy with Adenoca (awaiting Origin,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 DVT/PE tumor fevers Metastatic bony disease noted MRI brain with no met brain disease prelim liver path consistent with AdenoCa, awaiting origin identification and final path. stable CBC c/w lovenox for DVT/PE--will need this as a long-term medication, self teaching initiation MRI brain -- result reviewed--neuro f/u, add asa 81mg. as per discussion with her, gonzales package is being ready, as per my discussion with primary last week, being prepared for appt.will need to f/u about this next week--so she can be treated for her systemic disease. d/w pt in detail;
[2017-10-02] MEDS: SODIUM CHLORIDE 1,000 ML IV SCH (15:13)
[2017-10-02] MEDS: ASPIRIN COATED 81 MG TABLET.EC PO SCH (15:13)
[2017-10-02] MEDS: ACETAMINOPHEN 325 MG TABLET (FP) PO PRN (16:47)
[2017-10-03] MEDS: morphine SULFATE 4 MG/ML VIAL IVPUSH PRN ×3 (00:26→14:10)
[2017-10-03] MEDS: ACETAMINOPHEN 325 MG TABLET (FP) PO PRN ×2 (00:39→20:04)
[2017-10-03] MEDS: sitaGLIPtin PHOSPHATE 50 MG TABLET PO SCH (06:23)
[2017-10-03] MEDS: levoFLOXacin 500 MG, levoFLOXacin 250 MG PO SCH (06:23)
[2017-10-03] MEDS: INSULIN SLIDING SCALE (NOVOLOG) 1 VIAL SQ SCH ×3 (06:24→17:01)
--- NOTE | 2017-10-03 08:01 | PN ---
Progress Note, Physician Chief Complaint: abd pain History of Present Illness: abd pain same no cp or sob no palpitations denies ongoing confusion or neuro sx's no cigs hx - Current Medication List Current Medications: Active Medications Acetaminophen (Tylenol -) 650 mg PO Q6H PRN PRN Reason: TEMP OVER 101 Last Admin: 10/03/17 00:39 Dose: 650 mg Aspirin (Ecotrin -) 81 mg PO DAILY [facility] Last Admin: 10/02/17 15:13 Dose: 81 mg Enoxaparin Sodium (Lovenox -) 80 mg SQ BID [facility] Last Admin: 10/02/17 22:00 Dose: 80 mg Heparin Sodium (Porcine) (Heparin -) 1,000 unit IVPUSH PRN PRN PRN Reason: Heparin Hydralazine HCl (Apresoline Injection -) 10 mg IVPB Q8H PRN PRN Reason: HYPERTENSION Last Admin: 09/29/17 17:47 Dose: 10 mg Sodium Chloride (Normal Saline -) 1,000 mls @ 75 mls/hr IV ASDIR [facility] Last Admin: 10/02/17 15:13 Dose: 75 mls/hr Insulin Aspart (Novolog Vial Sliding Scale -) 1 vial SQ TIDAC [facility]; Protocol Last Admin: 10/03/17 06:24 Dose: 2 unit Levofloxacin 500 mg/ (Levofloxacin 250 mg) 750 mg PO DAILY@0600 [facility] Last Admin: 10/03/17 06:23 Dose: 750 mg Metoprolol Succinate (Toprol Xl -) 25 mg PO BID [facility] Last Admin: 10/02/17 21:59 Dose: 25 mg Morphine Sulfate (Morphine Sulfate) 2 mg IVPUSH Q4H PRN PRN Reason: PAIN LEVEL 6-10 Last Admin: 10/03/17 00:26 Dose: 2 mg Ondansetron HCl (Zofran Injection) 4 mg IVPUSH Q4H PRN PRN Reason: NAUSEA AND/OR VOMITING Last Admin: 09/30/17 09:58 Dose: 4 mg Oxycodone HCl (Roxicodone -) 5 mg PO Q4H PRN PRN Reason: PAIN LEVEL 4 - 6 Last Admin: 10/02/17 11:20 Dose: 5 mg Ranitidine HCl (Zantac -) 150 mg PO BID [facility] Last Admin: 10/02/17 21:59 Dose: 150 mg Sitagliptin Phosphate (Januvia -) 100 mg PO DAILY@0700 [facility] Last Admin: 10/03/17 06:23 Dose: 100 mg - Objective Vital Signs: Vital Signs Temperature 99.3 F 10/03/17 06:00 Pulse Rate 103 H 10/03/17 06:00 Respiratory Rate 20 10/03/17 06:00 Blood Pressure 159/85 10/03/17 06:00 O2 Sat by Pulse Oximetry (%) 94 L 10/02/17 21:00 Constitutional: Yes: No Distress, Calm Eyes: No: Sclera Icterus HENT: No: Nasal Congestion Cardiovascular: Yes: Regular Rate and Rhythm, S1, S2, Other (PMI non diplaced). No: Gallop, Murmur Respiratory: Yes: CTA Bilaterally. No: Accessory Muscle Use, Rales, Wheezes Gastrointestinal: Yes: Normal Bowel Sounds, Soft. No: Tenderness Musculoskeletal: Yes: Other (No kyphosis) Extremities: Yes: Other (no janeway lesions/osler's nodes (fingernail tunisian)). No: Cold Edema: No Integumentary: No: Jaundice Neurological: Yes: Alert, Oriented (x3) Psychiatric: No: Agitated Labs: CBC, BMP 10/02/17 06:00 10/02/17 06:00 INR, PTT INR 1.26 (0.82-1.09) H 09/28/17 06:15 Assessment/Plan chest CTA 09/2017: (prelim) small PE's in bilateral segmental branches. mild bibasilar atelectasis. multiple small 3-4 mm pulm nodules. mediastinal adenopathy. small pericardial effusion. + hepatic lesions susp for metastatic disease. 1.8 cm rt adrenal nodule. Abdominal LAD. ? mass in body of pancreas. abd u/s 09/2017: numerous hypoechoic mass lesions (suspicious for metastatic disease). Indeterminate hypoechogenicity at junction of the pancreatic tail and body - pancreatitis vs. mass. enlarged peripancreatic l. node. mild cbd dilatation. aorta wnl. echo 09/2017: nl lv/rv, no sig valve path abd u/s 06/2017: mild hepatomegaly with fatty infiltration vs. hepatocellular disease. tele: SR ASSESSMENT/PLAN 57 yo with DM (insulin-requiring as outpt recently), recent abd u/s showing NAFLD, recent dx of spinal hemangioma, recent dx of thrombophlebitis who p/w diffuse pain/predominantly epigastric pain abd pain, tumor fever, liver lesion biopsy + adenoCa, ? pancreatic primary: - suspected spine mets as well - pt states she does not want to receive any further elective care at this hospital, and intends to pursue remainder of the w/u and treatment at [facility] acute CVA: - transient confusional state here, which has completely resolved--seen by neuro at that time - MRI brain with mult bilateral acute infarcts in anterior and employment director circulation c/w cardioembolic phenomenon - pt on lovenox and aspirin - hypercoagulable pt with suspected pancreatic Ca and recent UE thrombus/PE - differential dx of cardioembolic strokes includes: (1) PFO with venous--> arterial thrombus migration; (2) benign intracardiac tumors; (3) abdominal solid tumor mets to heart; (4) marantic endocarditis (NBTE) - discussed the MRI findings with pt, and concern over future recurrent CVA risk. disc'd the above possibilities with her and what the potential treatments are for each. advised her that all of the above conditions are treated with therapeutic dose AC (e.g. lovenox) which she is already taking, and addition of anti-PLT therapy (aspirin low dose) is reasonable given the strokes occurred despite being on lovenox. - advised her that if [id number] intracardiac shunt is found, device PFO closure would not be recommended in pt who has compelling indication for lifelong AC in any event (malignancy-associated mult VTEs), unless recurrent embolic events occur on max AC/anti-plt therapy. advised her as well that surgical treatment of intracardiac tumor or NBTE vegetations would similarly not be recommended in pt with metastatic malignancy not yet fully evaluated/ treated, with surgery reserved in any event for pts with recurrent embolic events despite adequate medical therapy. (while these events occurred despite lovenox therapy here, surgery would not be considered unless she has breakthrough events on AC plus aspirin regimen, srinath given uncertain/likely poor prognosis in pt with suspected widely metastatic pancreatic cancer.) - no valvular abnormalities/vegetations or valve regurgitation noted on echo here, and no intracardiac masses seen (making cardiac mets as cause of embolic phenomena unlikely) - she has negative blood cultures and no findings suggestive of bacteremia or bacterial endocarditis (including no Janeway lesions or Osler's nodes). - despite the fact that DICK is expected NOT to impact at all on current mgmt ( for the above reasons), i advised pt we do the DICK prior to hospital discharge to round out the clinical picture as much as possible. however, she states that she absolutely refuses to have any more tests or care at this hospital, and given the low likelihood that the test will affect her current mgmt/prognosis, she insists she will not stay to have this. she prefers to leave and arrange for the DICK to be done through [facility]. - i asked her to contact me once she has [facility] initial consult appt, so i can be sure that the MRI reports and my note are forwarded there, so that the ? of cardioembolic strokes source is not lost in the shuffle when she goes for that initial evaluation. she verbalized understanding of the above entire discussion and of my instructions, and agreed to do so (gave her my business card with contact info) - continue lovenox 80 bid (confirmed wt today on scale = 75 kg) abnormal troponins - intermediate elevation, flat trend - not c/w ACS. EKG wnl. Echo unremarkable. - secondary to PEs - no ischemia w/u currently indicated PE: - recent thrombus in UE, CTA here with small bilateral segmental PE's. - on ac HTN - no prior dx. - toprol started here - bp controlled to mildly elevated - same meds, observe bp trend--add amlodipine if remains up hyponatremia - stable
[2017-10-03 08:36] LABS: HEMATOCRIT 30.8 % (32.4-45.2); HEMOGLOBIN 10.3 GM/dL (10.7-15.3); MCH 26.7 pg (25.7-33.7); MCHC 33.3 g/dl (32.0-36.0); MEAN PLT VOLUME 7.6 fl (7.5-11.1); PLATELET COUNT 219 K/MM3 (134-434); RBC 3.85 M/mm3 (3.60-5.2); RDW 13.2 % (11.6-15.6); WHITE BLOOD COUNT 12.2 K/mm3 (4.0-10.0)
[2017-10-03] MEDS: metoPROLOL SUCCINATE 25 MG TAB.SR.24H (FP) PO SCH ×2 (09:26→22:16)
[2017-10-03] MEDS: ASPIRIN COATED 81 MG TABLET.EC PO SCH (09:26)
[2017-10-03] MEDS: ENOXAPARIN NA (PORCINE) 80 MG/0.8 ML DISP.SYRIN SQ SCH ×2 (09:26→22:15)
[2017-10-03] MEDS: RANITIDINE HCL 150 MG TABLET (FP) PO SCH ×2 (09:27→22:16)
--- NOTE | 2017-10-03 11:57 | PN ---
Progress Note, Physician History of Present Illness: patient with spikes last night no other issues now has pain all over the body blood cx done - Current Medication List Current Medications: Active Medications Acetaminophen (Tylenol -) 650 mg PO Q6H PRN PRN Reason: TEMP OVER 101 Last Admin: 10/03/17 00:39 Dose: 650 mg Aspirin (Ecotrin -) 81 mg PO DAILY [facility] Last Admin: 10/03/17 09:26 Dose: 81 mg Enoxaparin Sodium (Lovenox -) 80 mg SQ BID [facility] Last Admin: 10/03/17 09:26 Dose: 80 mg Heparin Sodium (Porcine) (Heparin -) 1,000 unit IVPUSH PRN PRN PRN Reason: Heparin Hydralazine HCl (Apresoline Injection -) 10 mg IVPB Q8H PRN PRN Reason: HYPERTENSION Last Admin: 09/29/17 17:47 Dose: 10 mg Sodium Chloride (Normal Saline -) 1,000 mls @ 75 mls/hr IV ASDIR [facility] Last Admin: 10/02/17 15:13 Dose: 75 mls/hr Insulin Aspart (Novolog Vial Sliding Scale -) 1 vial SQ TIDAC [facility]; Protocol Last Admin: 10/03/17 11:40 Dose: 2 unit Levofloxacin 500 mg/ (Levofloxacin 250 mg) 750 mg PO DAILY@0600 [facility] Last Admin: 10/03/17 06:23 Dose: 750 mg Metoprolol Succinate (Toprol Xl -) 25 mg PO BID [facility] Last Admin: 10/03/17 09:26 Dose: 25 mg Morphine Sulfate (Morphine Sulfate) 2 mg IVPUSH Q4H PRN PRN Reason: PAIN LEVEL 6-10 Last Admin: 10/03/17 09:27 Dose: 2 mg Ondansetron HCl (Zofran Injection) 4 mg IVPUSH Q4H PRN PRN Reason: NAUSEA AND/OR VOMITING Last Admin: 09/30/17 09:58 Dose: 4 mg Oxycodone HCl (Roxicodone -) 5 mg PO Q4H PRN PRN Reason: PAIN LEVEL 4 - 6 Last Admin: 10/02/17 11:20 Dose: 5 mg Ranitidine HCl (Zantac -) 150 mg PO BID [facility] Last Admin: 10/03/17 09:27 Dose: 150 mg Sitagliptin Phosphate (Januvia -) 100 mg PO DAILY@0700 [facility] Last Admin: 10/03/17 06:23 Dose: 100 mg - Objective Vital Signs: Vital Signs Temperature 100.6 F H 10/03/17 09:52 Pulse Rate 111 H 10/03/17 09:52 Respiratory Rate 20 10/03/17 09:52 Blood Pressure 100/60 10/03/17 09:52 O2 Sat by Pulse Oximetry (%) 94 L 10/02/17 21:00 Constitutional: Yes: Calm, Mild Distress Eyes: Yes: Conjunctiva Clear HENT: Yes: Atraumatic Cardiovascular: Yes: Regular Rate and Rhythm Respiratory: Yes: Regular, CTA Bilaterally Gastrointestinal: Yes: Normal Bowel Sounds, Soft Musculoskeletal: Yes: WNL Extremities: Yes: WNL Neurological: Yes: Alert, Oriented Psychiatric: Yes: Alert, Oriented Labs: CBC, BMP 10/03/17 08:15 10/02/17 06:00 INR, PTT INR 1.26 (0.82-1.09) H 09/28/17 06:15 Assessment/Plan Problem List - Problems (1) Pulmonary emboli Code(s): I26.99 - OTHER PULMONARY EMBOLISM WITHOUT ACUTE COR PULMONALE Qualifiers: Pulmonary embolism type: other Chronicity: acute Acute cor pulmonale presence: without acute cor pulmonale Qualified Code(s): I26.99 - Other pulmonary embolism without acute cor pulmonale (2) Elevated troponin Code(s): R74.8 - ABNORMAL LEVELS OF OTHER SERUM ENZYMES (3) Pancreatic mass Code(s): K86.9 - DISEASE OF PANCREAS, UNSPECIFIED (4) T2DM (type 2 diabetes mellitus) Code(s): E11.9 - TYPE 2 DIABETES MELLITUS WITHOUT COMPLICATIONS Qualifiers: Diabetes mellitus termite inspector insulin use: without termite inspector use Diabetes mellitus complication status: without complication Qualified Code(s): E11.9 - Type 2 diabetes mellitus without complications 5 afunctional spleen plan continue levaquin await for mri result pain mgmt rest as per the team mri seen and results noted
[2017-10-03] MEDS: SODIUM CHLORIDE 1,000 ML IV SCH (13:18)
--- NOTE | 2017-10-03 14:24 | PN ---
Progress Note, Physician History of Present Illness: Has epigastric discomfort, mid back pain, but trying to take pain medication sparingly. 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 Had fever yesterday again, remains on levaquin - Current Medication List Current Medications: Active Medications Acetaminophen (Tylenol -) 650 mg PO Q6H PRN PRN Reason: TEMP OVER 101 Last Admin: 10/03/17 00:39 Dose: 650 mg Aspirin (Ecotrin -) 81 mg PO DAILY [facility] Last Admin: 10/03/17 09:26 Dose: 81 mg Enoxaparin Sodium (Lovenox -) 80 mg SQ BID [facility] Last Admin: 10/03/17 09:26 Dose: 80 mg Heparin Sodium (Porcine) (Heparin -) 1,000 unit IVPUSH PRN PRN PRN Reason: Heparin Hydralazine HCl (Apresoline Injection -) 10 mg IVPB Q8H PRN PRN Reason: HYPERTENSION Last Admin: 09/29/17 17:47 Dose: 10 mg Sodium Chloride (Normal Saline -) 1,000 mls @ 75 mls/hr IV ASDIR [facility] Last Admin: 10/02/17 15:13 Dose: 75 mls/hr Insulin Aspart (Novolog Vial Sliding Scale -) 1 vial SQ TIDAC [facility]; Protocol Last Admin: 10/03/17 11:40 Dose: 2 unit Levofloxacin 500 mg/ (Levofloxacin 250 mg) 750 mg PO DAILY@0600 [facility] Last Admin: 10/03/17 06:23 Dose: 750 mg Metoprolol Succinate (Toprol Xl -) 25 mg PO BID [facility] Last Admin: 10/03/17 09:26 Dose: 25 mg Morphine Sulfate (Morphine Sulfate) 2 mg IVPUSH Q4H PRN PRN Reason: PAIN LEVEL 6-10 Last Admin: 10/03/17 14:10 Dose: 2 mg Ondansetron HCl (Zofran Injection) 4 mg IVPUSH Q4H PRN PRN Reason: NAUSEA AND/OR VOMITING Last Admin: 09/30/17 09:58 Dose: 4 mg Oxycodone HCl (Roxicodone -) 10 mg PO Q4H PRN PRN Reason: PAIN LEVEL 4 - 6 Ranitidine HCl (Zantac -) 150 mg PO BID [facility] Last Admin: 10/03/17 09:27 Dose: 150 mg Sitagliptin Phosphate (Januvia -) 100 mg PO DAILY@0700 [facility] Last Admin: 10/03/17 06:23 Dose: 100 mg - Objective Vital Signs: Vital Signs Temperature 98.8 F 10/03/17 14:00 Pulse Rate 111 H 10/03/17 14:00 Respiratory Rate 20 10/03/17 14:00 Blood Pressure 172/99 10/03/17 14:00 O2 Sat by Pulse Oximetry (%) 94 L 10/03/17 09:00 Cardiovascular: Yes: Regular Rate and Rhythm, S1, S2. No: Murmur Respiratory: Yes: Regular, CTA Bilaterally. No: Rales, Rhonchi, Wheezes Gastrointestinal: Yes: Normal Bowel Sounds, Soft, Distention (mildly) Edema: No Labs: CBC, BMP 10/03/17 08:15 10/02/17 06:00 INR, PTT INR 1.26 (0.82-1.09) H 09/28/17 06:15 Assessment/Plan Current Active Problems Abdominal pain (Acute) Abnormal CT of liver (Acute) Altered mental status (Acute) Elevated CA 19-9 level (Acute) Elevated troponin (Acute) Epigastric abdominal pain (Acute) Hepatic lesion (Acute) Hyponatremia (Acute) Metastasis to vertebral column of unknown origin (Acute) Pancreatic mass (Acute) Pulmonary emboli (Acute) Renal infarct (Acute) Splenic infarct (Acute) T2DM (type 2 diabetes mellitus) (Acute) Venous thrombosis (Acute) -cont lovenox, pain medication as needed -discussed with patient that once she is discharged from hospital that [facility] can review her case and get her in for an appt, but the problem with discharge over weekend is that no services can be set up at home ([facility]) and still in a lot of pain currently. If she is discharged tomorrow morning, however, then services can be arranged and D/C summary can be sent to [facility]
--- NOTE | 2017-10-03 16:25 | PN ---
Progress Note (short form) - Note Progress Note: pt seen and examined pt denies any headaches, difficulty swallowing, blurry vision. but c/o pain. 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) AFVSS Cor: RSR, No murmurs, No gallops Lungs: Clear to P&A Abd: Soft, Normal bowel sounds, No organomegaly Ext:No significant edema Last Vital Signs Temp Pulse Resp BP Pulse Ox 98.4 F 103 H 20 138/76 99 10/01/17 10:01 10/01/17 10:01 10/01/17 10:01 10/01/17 10:01 10/01/17 09:00 CBC, BMP 10/01/17 10:20 10/01/17 06:30 Current Medications Generic Name Dose Route Start Last Admin Trade Name Freq PRN Reason Stop Dose Admin Acetaminophen 650 mg 09/25/17 21:36 10/01/17 04:02 Tylenol - PO 650 mg Q6H PRN Administration TEMP OVER 101 Enoxaparin Sodium 80 mg 09/29/17 12:30 10/01/17 09:55 Lovenox - SQ 80 mg BID [facility] Administration Heparin Sodium (Porcine) 1,000 unit 09/28/17 17:07 Heparin - IVPUSH PRN PRN Heparin Hydralazine HCl 10 mg 09/29/17 16:56 09/29/17 17:47 Apresoline Injection - IVPB 10 mg Q8H PRN Administration HYPERTENSION Sodium Chloride 1,000 mls @ 75 mls/hr 09/30/17 13:30 10/01/17 06:07 Normal Saline - IV 75 mls/hr ASDIR [facility] Administration Insulin Aspart 1 vial 09/25/17 07:00 10/01/17 12:14 Novolog Vial Sliding Scale - SQ 2 unit TIDAC [facility] Administration Protocol Levofloxacin 500 mg/ 750 mg 09/29/17 16:45 10/01/17 06:03 Levofloxacin 250 mg PO 750 mg DAILY@0600 [facility] Administration Metoprolol Succinate 25 mg 09/25/17 10:00 10/01/17 09:56 Toprol Xl - PO 25 mg BID [facility] Administration Morphine Sulfate 2 mg 09/30/17 12:24 10/01/17 13:57 Morphine Sulfate IVPUSH 2 mg Q4H PRN Administration PAIN LEVEL 6-10 Ondansetron HCl 4 mg 09/29/17 15:10 09/30/17 09:58 Zofran Injection IVPUSH 4 mg Q4H PRN Administration NAUSEA AND/OR VOMITING Oxycodone HCl 5 mg 09/29/17 15:10 09/30/17 22:18 Roxicodone - PO 5 mg Q4H PRN Administration PAIN LEVEL 4 - 6 Ranitidine HCl 150 mg 09/25/17 10:00 10/01/17 09:56 Zantac - PO 150 mg BID [facility] Administration Sitagliptin Phosphate 100 mg 09/25/17 07:00 10/01/17 06:04 Januvia - PO 100 mg DAILY@0700 [facility] Administration Liver biopsy with Adenoca (awaiting Origin,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 DVT/PE tumor fevers Metastatic bony disease MRI brain with no met brain disease prelim liver path consistent with AdenoCa, awaiting origin identification and final path. stable CBC c/w lovenox for DVT/PE MRI brain -- result reviewed--c.w asa 81mg/d. 's note much appreciated pain control SWer intervention appreciate 's f/u. pt aware
[2017-10-03] MEDS ORDERED: VANCOMYCIN 1,000 MG in DEXTROSE 5%-WATER - 250 ML IVPB ONE (18:15)
--- NOTE | 2017-10-03 19:28 | EKG ---
Test Reason : Blood Pressure : / mmHG Vent. Rate : 103 BPM Atrial Rate : 103 BPM P-R Int : 132 ms QRS Dur : 088 ms QT Int : 346 ms P-R-T Axes : 042 024 035 degrees QTc Int : 453 ms SINUS TACHYCARDIA OTHERWISE NORMAL ECG WHEN COMPARED WITH ECG OF 25-SEP-2017 10:05, NO SIGNIFICANT CHANGE WAS FOUND Confirmed by SHANNAN GERARDO MD ([id number]) on 10/03/2017 7:28:33 PM Referred By: Klaudia TORRES Confirmed By:SHANNAN GERARDO MD
[2017-10-03] MEDS: oxyCODONE HCL 5 MG TABLET PO PRN (22:16)
[2017-10-04] MEDS: ACETAMINOPHEN 325 MG TABLET (FP) PO PRN (06:26)
[2017-10-04] MEDS: sitaGLIPtin PHOSPHATE 50 MG TABLET PO SCH (06:26)
[2017-10-04] MEDS: levoFLOXacin 500 MG, levoFLOXacin 250 MG PO SCH (06:26)
[2017-10-04] MEDS: INSULIN SLIDING SCALE (NOVOLOG) 1 VIAL SQ SCH ×2 (06:27→11:32)
[2017-10-04 08:09] LABS: HEMATOCRIT 29.2 % (32.4-45.2); HEMOGLOBIN 9.9 GM/dL (10.7-15.3); MEAN CELL VOLUME 79.5 fl (80-96); MEAN PLT VOLUME 7.9 fl (7.5-11.1); PLATELET COUNT 281 K/MM3 (134-434); RBC 3.67 M/mm3 (3.60-5.2); RDW 13.4 % (11.6-15.6); WHITE BLOOD COUNT 9.5 K/mm3 (4.0-10.0)
--- NOTE | 2017-10-04 09:31 | DS ---
Physical Examination Vital Signs: Vital Signs Temperature 38.6 C H 10/04/17 06:00 Pulse Rate 118 H 10/04/17 06:00 Respiratory Rate 16 10/04/17 06:00 Blood Pressure 157/92 10/04/17 06:00 O2 Sat by Pulse Oximetry (%) 94 L 10/03/17 21:00 Constitutional: Yes: Well Nourished, No Distress, Calm Cardiovascular: Yes: Regular Rate and Rhythm. No: Gallop, Murmur, Rub Respiratory: Yes: Regular, CTA Bilaterally. No: Rales, Rhonchi, Wheezes Gastrointestinal: Yes: Normal Bowel Sounds, Soft. 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 She was admitted and had an ultrasound of the abdomen which showed possible metastatic disease of the liver. She also had history of possible DVTs, duplex dopplers and CT scan PE protocol showed DVTs and PEs. She was started on lovenox and was seen by heme/onc. She underwent CT A/P and also MRI spine with contrast. CT showed mass in pancreas, metastatic disease in the liver, splenic and renal infarcts. MRI showed metastatic disease in the vertebrae without spinal cord involvement. She was noted to have difficulty word finding and head CT and MRI were performed which showed emboli. Neurology consulted and started on aspirin. She underwent biopsy of the liver, preliminary read is adenocarcinoma. She was noted to have fevers and ID was consulted and she was started on levaquin secondary to splenic infarcts. She will be discharged on levaquin and followed up as an outpatient on when this can be discontinued. She is currently stable for discharge with close follow up. 32 minutes spent in preparation of this discharge. Condition: Good - Instructions Diet, Activity, Other Instructions: diabetic diet. resume previous activity. Referrals: Shila Reynoso MD [Primary Care Provider] - Vashti Irizarry MD [Staff Physician] - Disposition: [facility]/HOME HEALTH CARE - Home Medications Comprehensive Discharge Medication List: Ambulatory Orders Sitagliptin Phosphate [Januvia -] 100 mg PO DAILY@0700 09/24/17 Aspirin Coated [Ecotrin -] 81 mg PO DAILY #30 tablet.ec 10/04/17 Enoxaparin [Lovenox -] 80 mg SQ BID #60 disp.syrin 10/04/17 Levofloxacin [Levaquin] 750 mg PO DAILY #30 tablet 10/04/17 Metoprolol Succinate [Toprol XL -] 25 mg PO BID #60 tab.sr.24h 10/04/17 oxyCODONE HCL [Roxicodone -] 5 mg PO Q4H PRN #60 tablet MDD 60mg 10/04/17
[2017-10-04 10:11] VITALS: BP 152/91; PULSE 102; TEMP 98.8
--- NOTE | 2017-10-04 10:11 | PN ---
Progress Note, Physician History of Present Illness: continues to spike all cx negative so far still does not feel good plan to go to [facility] - Current Medication List Current Medications: Active Medications Acetaminophen (Tylenol -) 650 mg PO Q6H PRN PRN Reason: TEMP OVER 101 Last Admin: 10/04/17 06:26 Dose: 650 mg Aspirin (Ecotrin -) 81 mg PO DAILY [facility] Last Admin: 10/03/17 09:26 Dose: 81 mg Enoxaparin Sodium (Lovenox -) 80 mg SQ BID [facility] Last Admin: 10/03/17 22:15 Dose: 80 mg Hydralazine HCl (Apresoline Injection -) 10 mg IVPB Q8H PRN PRN Reason: HYPERTENSION Last Admin: 09/29/17 17:47 Dose: 10 mg Sodium Chloride (Normal Saline -) 1,000 mls @ 75 mls/hr IV ASDIR [facility] Last Admin: 10/03/17 13:18 Dose: 75 mls/hr Insulin Aspart (Novolog Vial Sliding Scale -) 1 vial SQ TIDAC [facility]; Protocol Last Admin: 10/04/17 06:27 Dose: 2 unit Levofloxacin 500 mg/ (Levofloxacin 250 mg) 750 mg PO DAILY@0600 [facility] Last Admin: 10/04/17 06:26 Dose: 750 mg Metoprolol Succinate (Toprol Xl -) 25 mg PO BID [facility] Last Admin: 10/03/17 22:16 Dose: 25 mg Morphine Sulfate (Morphine Sulfate) 2 mg IVPUSH Q4H PRN PRN Reason: PAIN LEVEL 6-10 Last Admin: 10/03/17 14:10 Dose: 2 mg Ondansetron HCl (Zofran Injection) 4 mg IVPUSH Q4H PRN PRN Reason: NAUSEA AND/OR VOMITING Last Admin: 09/30/17 09:58 Dose: 4 mg Oxycodone HCl (Roxicodone -) 10 mg PO Q4H PRN PRN Reason: PAIN LEVEL 4 - 6 Last Admin: 10/03/17 22:16 Dose: 10 mg Ranitidine HCl (Zantac -) 150 mg PO BID [facility] Last Admin: 10/03/17 22:16 Dose: 150 mg Sitagliptin Phosphate (Januvia -) 100 mg PO DAILY@0700 [facility] Last Admin: 10/04/17 06:26 Dose: 100 mg - Objective Vital Signs: Vital Signs Temperature 101.4 F H 10/04/17 06:00 Pulse Rate 118 H 10/04/17 06:00 Respiratory Rate 16 10/04/17 06:00 Blood Pressure 157/92 10/04/17 06:00 O2 Sat by Pulse Oximetry (%) 94 L 10/03/17 21:00 Constitutional: Yes: Calm, Mild Distress HENT: Yes: Atraumatic Neck: Yes: Supple, Trachea Midline Cardiovascular: Yes: Regular Rate and Rhythm Respiratory: Yes: Regular, CTA Bilaterally Gastrointestinal: Yes: Normal Bowel Sounds, Soft Musculoskeletal: Yes: WNL Extremities: Yes: WNL Neurological: Yes: Alert, Oriented Psychiatric: Yes: Alert, Oriented Labs: CBC, BMP 10/04/17 06:00 10/02/17 06:00 INR, PTT INR 1.26 (0.82-1.09) H 09/28/17 06:15 Assessment/Plan Problem List - Problems (1) Pulmonary emboli Code(s): I26.99 - OTHER PULMONARY EMBOLISM WITHOUT ACUTE COR PULMONALE Qualifiers: Pulmonary embolism type: other Chronicity: acute Acute cor pulmonale presence: without acute cor pulmonale Qualified Code(s): I26.99 - Other pulmonary embolism without acute cor pulmonale (2) Elevated troponin Code(s): R74.8 - ABNORMAL LEVELS OF OTHER SERUM ENZYMES (3) Pancreatic mass Code(s): K86.9 - DISEASE OF PANCREAS, UNSPECIFIED (4) T2DM (type 2 diabetes mellitus) Code(s): E11.9 - TYPE 2 DIABETES MELLITUS WITHOUT COMPLICATIONS Qualifiers: Diabetes mellitus buttermaker continuous churn insulin use: without buttermaker continuous churn use Diabetes mellitus complication status: without complication Qualified Code(s): E11.9 - Type 2 diabetes mellitus without complications 5 afunctional spleen plan continue levaquin rest as per the team
[2017-10-04] MEDS: ASPIRIN COATED 81 MG TABLET.EC PO SCH (10:13)
[2017-10-04] MEDS: ENOXAPARIN NA (PORCINE) 80 MG/0.8 ML DISP.SYRIN SQ SCH (10:13)
[2017-10-04] MEDS: metoPROLOL SUCCINATE 25 MG TAB.SR.24H (FP) PO SCH (10:13)
[2017-10-04] MEDS: RANITIDINE HCL 150 MG TABLET (FP) PO SCH (10:13)
[2017-10-04] MEDS: oxyCODONE HCL 5 MG TABLET PO PRN (11:33)
== END 2017-10-04 12:34 | disposition home health service (06) | DRG 134 ==
LOC: JER 18:17 → JERBED 09-25 02:21 → UNDOADMIN 09-25 02:33 → J4W 09-25 17:25 → J7W 09-27 16:30 → J4S 09-30 19:30
PROVIDERS: ADMIT Internal Medicine; ATTEND Internal Medicine
PROC: 0FB03ZX Excision of Liver, Percutaneous Approach, Diagnostic (ICD-10-PCS; principal; 2017-09-28)
PROC: 3E033GC Introduction of Other Therapeutic Substance into Peripheral Vein, Percutaneous Approach (ICD-10-PCS; 2017-09-28)
DX: I26.99 Other pulmonary embolism without acute cor pulmonale (principal); E11.9 Type 2 diabetes mellitus without complications; Z88.0 Allergy status to penicillin; I10 Essential (primary) hypertension; L30.9 Dermatitis, unspecified; K86.9 Disease of pancreas, unspecified; R91.1 Solitary pulmonary nodule; I80.8 Phlebitis and thrombophlebitis of other sites; E87.1 Hypo-osmolality and hyponatremia; J98.11 Atelectasis; I82.619 Acute embolism and thrombosis of superficial veins of unspecified upper extremity; R50.9 Fever, unspecified; K76.9 Liver disease, unspecified; E66.9 Obesity, unspecified; K76.0 Fatty (change of) liver, not elsewhere classified; D73.5 Infarction of spleen; C78.7 Secondary malignant neoplasm of liver and intrahepatic bile duct; C79.51 Secondary malignant neoplasm of bone; R16.0 Hepatomegaly, not elsewhere classified; I63.9 Cerebral infarction, unspecified; N28.0 Ischemia and infarction of kidney; Z68.28 Body mass index [BMI] 28.0-28.9, adult; Z79.84 Long term (current) use of oral hypoglycemic drugs
CPT/HCPCS: 36415; 70450-TC; 70553-TC; 71046-TC-FY; 71275-TC; 72147-TC; 72149-TC; 74178-TC; 76705-TC; 76942-TC; 80048; 80053; 80061; 80076; 81003; 81015; 82378; 82550; 82962; 83036; 83690; 83721; 83735; 84100; 84443; 84484; 85025; 85027; 85610; 85730; 86301; 87040; 87899; 88305-TC; 93005; 93010; 93306-TC; 93970-TC; 99285-25; J0131; J1644; J7030